=== PATIENT | male | born 1950 | race Two or more races ===

== ENCOUNTER → 2021-12-13 | Outpatient (CLI) | payer OTHER ==
[2021-12-13 08:10] LABS: Basophils # (auto) 0 10 ^3/uL (0-0.2); Basophils % (auto) 0.2 % (0.0-2.0); Eosinophils # (auto) 0 10 ^3/uL (0-0.8); Eosinophils % (auto) 0.3 % (0.0-7.0); Hematocrit 38.6 % (41.0-53.0); Hemoglobin 12.2 g/dL (13.5-17.5); Lymphocytes # (auto) 1.2 10 ^3/uL (0.4-5.4); Lymphocytes % (auto) 12.7 % (10.0-50.0); Mean Corpuscular Hemoglobin 27.4 pg (28.0-32.0); Mean Corpuscular Hgb Conc. 31.7 g/dL (32.0-36.0); Mean Corpuscular Volume 86.4 fL (80.0-100.0); Monocytes # (auto) 0.4 10 ^3/uL (0-1.3); Monocytes % (auto) 3.9 % (0.0-12.0); Neutrophils # (auto) 7.9 10 ^3/uL (1.6-8.6); Neutrophils % (auto) 82.9 % (37.0-80.0); Red Blood Cells 4.46 10^6/uL (4.5-5.90); White Blood Cell 9.6 10^3/uL (4.4-10.8)
[2021-12-13 08:12] LABS: Urine Bacteria NONE SEEN /hpf (None Seen); Urine Blood Negative /uL (Negative); Urine Specific Gravity 1.009 (1.001-1.035); Urine WBC 1 /hpf (0 - 3)
[2021-12-13 08:38] LABS: Calcium 8.6 mg/dL (8.5-10.1); Potassium 4.3 mmol/L (3.5-5.1)
[2021-12-13 08:44] LABS: BUN/Creatinine Ratio 20.4
== END | disposition home or self-care (01) ==
LOC: LAB 07:16
PROVIDERS: ATTEND Student in an Organized Health Care Education/Training Program
DX: E11.9 Type 2 diabetes mellitus without complications (principal); I10 Essential (primary) hypertension
CPT/HCPCS: 36415; 80048; 80061; 81001; 83036; 85025

== ENCOUNTER 2022-07-18 16:39 | Emergency (ER) | payer OTHER ==
[~2022-07-18] VITALS: Ht 177.8 cm; Wt 104.5 kg
[2022-07-18 17:42] LABS: Basophils % (auto) 0.7 % (0.0-2.0); Eosinophils # (auto) 0.2 10 ^3/uL (0-0.8); Hemoglobin 9.9 g/dL (13.5-17.5); Mean Corpuscular Hgb Conc. 33.3 g/dL (32.0-36.0); Monocytes # (auto) 0.6 10 ^3/uL (0-1.3); Neutrophils # (auto) 5.5 10 ^3/uL (1.6-8.6)
[2022-07-18 17:44] LABS: Basophils # (auto) 0 10 ^3/uL (0-0.2); Eosinophils % (auto) 2.3 % (0.0-7.0); Hematocrit 29.7 % (41.0-53.0); Lymphocytes # (auto) 1.1 10 ^3/uL (0.4-5.4); Lymphocytes % (auto) 14.7 % (10.0-50.0); Mean Corpuscular Hemoglobin 28.4 pg (28.0-32.0); Mean Corpuscular Volume 85.4 fL (80.0-100.0); Monocytes % (auto) 8.5 % (0.0-12.0); Neutrophils % (auto) 73.8 % (37.0-80.0); Nucleated Red Blood Cells % 0.1 %; Red Blood Cells 3.47 10^6/uL (4.5-5.90); Red Cell Distribution Width 17.2 % (11.8-14.3); White Blood Cell 7.4 10^3/uL (4.4-10.8)
[2022-07-18 18:04] LABS: Albumin 2.5 g/dL (3.4-5.0); BUN/Creatinine Ratio 10.2; Calcium 9.1 mg/dL (8.5-10.1)
[2022-07-18 18:07] LABS: Bilirubin, Total 0.5 mg/dL (0.2-1.0); Total Protein 7.4 g/dL (6.4-8.2)
[2022-07-18] MEDS ORDERED: BACDST PO (18:38)
[2022-07-18 19:55] VITALS: BP 130/65
== END 2022-07-18 20:08 | disposition home or self-care (01) ==
LOC: ER 16:39
DX: L03.90 Cellulitis, unspecified (principal)
CPT/HCPCS: 36415; 73700; 80053; 83690; 85025; 85652

== ENCOUNTER → 2022-08-20 | Outpatient (CLI) | payer OTHER ==
[~2022-08-20] MED LIST: BACDST PO
[2022-08-20 07:58] LABS: Basophils # (auto) 0 10 ^3/uL (0-0.2); Eosinophils # (auto) 0 10 ^3/uL (0-0.8); Hemoglobin 10.3 g/dL (13.5-17.5); Lymphocytes # (auto) 0.8 10 ^3/uL (0.4-5.4); Mean Corpuscular Hemoglobin 26.7 pg (28.0-32.0); Monocytes # (auto) 0.4 10 ^3/uL (0-1.3); Neutrophils # (auto) 5.6 10 ^3/uL (1.6-8.6)
[2022-08-20 08:00] LABS: Basophils % (auto) 0.2 % (0.0-2.0); Eosinophils % (auto) 0.5 % (0.0-7.0); Hematocrit 31.9 % (41.0-53.0); Lymphocytes % (auto) 11.7 % (10.0-50.0); Mean Corpuscular Hgb Conc. 32.3 g/dL (32.0-36.0); Mean Corpuscular Volume 82.6 fL (80.0-100.0); Monocytes % (auto) 5.7 % (0.0-12.0); Neutrophils % (auto) 81.9 % (37.0-80.0); Red Blood Cells 3.86 10^6/uL (4.5-5.90); Red Cell Distribution Width 19.4 % (11.8-14.3); Urine Bacteria NONE SEEN /hpf (None Seen); Urine Blood Negative /uL (Negative); Urine Specific Gravity 1.013 (1.001-1.035); Urine WBC 1 /hpf (0 - 3); White Blood Cell 6.9 10^3/uL (4.4-10.8)
[2022-08-20 08:27] LABS: Albumin 3.1 g/dL (3.4-5.0); Potassium 4.1 mmol/L (3.5-5.1)
[2022-08-20 08:35] LABS: BUN/Creatinine Ratio 23.6 (10.0-20.0); Bilirubin, Total 0.4 mg/dL (0.2-1.0); Calcium 9.5 mg/dL (8.5-10.1); Total Protein 7.1 g/dL (6.4-8.2)
== END | disposition home or self-care (01) ==
LOC: LAB 07:36
PROVIDERS: ATTEND Student in an Organized Health Care Education/Training Program
DX: I10 Essential (primary) hypertension (principal); E11.9 Type 2 diabetes mellitus without complications
CPT/HCPCS: 36415; 80053; 80061; 81001; 83036; 84153; 84154; 85025

== ENCOUNTER → 2023-02-18 | Outpatient (CLI) | payer OTHER ==
[2023-02-18 08:51] LABS: Basophils # (auto) 0 10 ^3/uL (0-0.2); Eosinophils # (auto) 0 10 ^3/uL (0-0.8); Monocytes # (auto) 0.4 10 ^3/uL (0-1.3); Nucleated Red Blood Cells % 0.2 %
[2023-02-18 08:53] LABS: Basophils % (auto) 0.2 % (0.0-2.0); Eosinophils % (auto) 0.1 % (0.0-7.0); Hemoglobin 8.5 g/dL (13.5-17.5); Lymphocytes # (auto) 1.1 10 ^3/uL (0.4-5.4); Lymphocytes % (auto) 11.2 % (10.0-50.0); Mean Corpuscular Hemoglobin 20.7 pg (28.0-32.0); Mean Corpuscular Hgb Conc. 30.2 g/dL (32.0-36.0); Mean Corpuscular Volume 68.6 fL (80.0-100.0); Monocytes % (auto) 4.6 % (0.0-12.0); Neutrophils # (auto) 7.9 10 ^3/uL (1.6-8.6); Neutrophils % (auto) 83.9 % (37.0-80.0); Red Blood Cells 4.08 10^6/uL (4.5-5.90); White Blood Cell 9.5 10^3/uL (4.4-10.8)
[2023-02-18 08:55] LABS: Red Cell Distribution Width 20.3 % (11.8-14.3)
[2023-02-18 09:00] LABS: Urine Bacteria FEW /hpf (None Seen); Urine Blood Negative /uL (Negative); Urine Clarity Clear (Clear); Urine Color Yellow (Yellow); Urine Protein, UAD Negative (Negative); Urine Specific Gravity 1.017 (1.001-1.035); Urine Urobilinogen Normal (Negative); Urine WBC 4 /hpf (0 - 3); Urine pH 6.5 (5.0-8.0)
[2023-02-18 09:03] LABS: Anion Gap 7 (5-15); Carbon Dioxide 27 mmol/L (20-30); Chloride 95 mmol/L (98-107); Potassium 4.1 mmol/L (3.5-5.1); Sodium 129 mmol/L (136-145)
[2023-02-18 09:05] LABS: Calcium 9.3 mg/dL (8.5-10.1)
[2023-02-18 09:09] LABS: BUN/Creatinine Ratio 21.4 (10.0-20.0); Blood Urea Nitrogen 21 mg/dL (9-23); Glucose 178 mg/dL (74-106)
[2023-02-18 12:05] LABS: Platelet Estimate Adequate; Stomatocytes Few
[2023-02-18 12:06] LABS: Hypochromia Marked; Tear Drop Cells FEW
[2023-02-18 12:07] LABS: Anisocytosis Slight
== END | disposition home or self-care (01) ==
LOC: LAB 08:12
PROVIDERS: ATTEND Student in an Organized Health Care Education/Training Program
DX: I10 Essential (primary) hypertension (principal); E11.9 Type 2 diabetes mellitus without complications
CPT/HCPCS: 36415; 80048; 81001; 83036; 84439; 84443; 85025

== ENCOUNTER → 2023-12-21 | Outpatient (CLI) | payer OTHER ==
[2023-12-21 07:47] LABS: Urine Bacteria None Seen /hpf (None Seen)
[2023-12-21 07:52] LABS: Basophils # (auto) 0 10 ^3/uL (0-0.2); Basophils % (auto) 0.3 % (0.0-2.0); Eosinophils # (auto) 0 10 ^3/uL (0-0.8); Eosinophils % (auto) 0.3 % (0.0-7.0); Hematocrit 36.3 % (41.0-53.0); Hemoglobin 11.7 g/dL (13.5-17.5); Lymphocytes # (auto) 1.2 10 ^3/uL (0.4-5.4); Lymphocytes % (auto) 15.6 % (10.0-50.0); Mean Corpuscular Hemoglobin 26.2 pg (28.0-32.0); Mean Corpuscular Hgb Conc. 32.1 g/dL (32.0-36.0); Mean Corpuscular Volume 81.5 fL (80.0-100.0); Monocytes # (auto) 0.5 10 ^3/uL (0-1.3); Monocytes % (auto) 6.5 % (0.0-12.0); Neutrophils # (auto) 5.7 10 ^3/uL (1.6-8.6); Neutrophils % (auto) 77.3 % (37.0-80.0); Nucleated Red Blood Cells % 0.1 %; Platelet Count (auto) 248 10^3/uL (140-450); Red Blood Cells 4.45 10^6/uL (4.5-5.90); White Blood Cell 7.4 10^3/uL (4.4-10.8)
[2023-12-21 08:13] LABS: Urine Blood Negative /uL (Negative); Urine Clarity Clear (Clear); Urine Color Light-Yellow (Yellow); Urine Protein, UAD Negative (Negative); Urine Specific Gravity 1.012 (1.001-1.035); Urine Urobilinogen Normal (Negative); Urine WBC 6 /hpf (0 - 3)
[2023-12-21 09:19] LABS: Alanine Aminotransferase 47 U/L (7-40); Alkaline Phosphatase 63 U/L (46-116); Aspartate Aminotransferase 19 U/L (13-40); BUN/Creatinine Ratio 24.2 (10.0-20.0); Blood Urea Nitrogen 22 mg/dL (9-23); Chloride 99 mmol/L (98-107); Cholesterol 250 mg/dL (< 200); Glucose 207 mg/dL (74-106); HDL Cholesterol 46 mg/dL (40-59); LDL Cholesterol 163 mg/dL (< 100); Potassium 4.1 mmol/L (3.5-5.1); Sodium 131 mmol/L (136-145); Triglycerides 266 mg/dL (< 150)
[2023-12-21 09:20] LABS: Bilirubin, Total 0.4 mg/dL (0.2-1.0); Total Protein 6.7 g/dL (5.7-8.2)
[2023-12-21 09:24] LABS: Anion Gap 1 (5-15); Carbon Dioxide 31 mmol/L (20-30)
[2023-12-22 08:06] LABS: PSA Free 0.61 ng/mL; Prostate Specific Antigen 7.3 ng/mL (0.0-4.0)
== END | disposition home or self-care (01) ==
LOC: LAB 07:37
PROVIDERS: ATTEND Student in an Organized Health Care Education/Training Program
DX: I10 Essential (primary) hypertension (principal); E11.9 Type 2 diabetes mellitus without complications; R97.20 Elevated prostate specific antigen [PSA]
CPT/HCPCS: 36415; 80053; 80061; 81001; 83036; 84153; 84154; 85025

== ENCOUNTER → 2024-08-16 | Outpatient (CLI) | payer OTHER ==
[2024-08-16 07:43] LABS: Urine Bacteria None Seen /hpf (None Seen)
[2024-08-16 08:03] LABS: Urine Blood Negative /uL (Negative); Urine Clarity Clear (Clear); Urine Color Colorless (Yellow); Urine Protein, UAD Negative (Negative); Urine Specific Gravity 1.011 (1.001-1.035); Urine Squamous Epithelial Cell FEW /hpf (<5); Urine Urobilinogen Normal (Negative); Urine WBC 2 /HPF (0-3)
[2024-08-16 08:15] LABS: Basophils # (auto) 0 10 ^3/uL (0-0.2); Basophils % (auto) 0.2 % (0.0-2.0); Eosinophils # (auto) 0 10 ^3/uL (0-0.8); Eosinophils % (auto) 0.1 % (0.0-7.0); Hematocrit 39.6 % (41.0-53.0); Hemoglobin 13.2 g/dL (13.5-17.5); Lymphocytes % (auto) 13.1 % (10.0-50.0); Mean Corpuscular Hemoglobin 29.2 pg (28.0-32.0); Mean Corpuscular Hgb Conc. 33.5 g/dL (32.0-36.0); Mean Corpuscular Volume 87.1 fL (80.0-100.0); Monocytes # (auto) 0.4 10 ^3/uL (0-1.3); Monocytes % (auto) 4.7 % (0.0-12.0); Neutrophils # (auto) 6.3 10 ^3/uL (1.6-8.6); Neutrophils % (auto) 81.9 % (37.0-80.0); Platelet Count (auto) 263 10^3/uL (140-450); Red Blood Cells 4.54 10^6/uL (4.5-5.90); Red Cell Distribution Width 17.5 % (11.8-14.3); White Blood Cell 7.7 10^3/uL (4.4-10.8)
[2024-08-16 08:30] LABS: Alanine Aminotransferase 30 U/L (7-40); Albumin 4.3 g/dL (3.2-4.8); Alkaline Phosphatase 62 U/L (46-116); Anion Gap 10 (5-15); Calcium 10.1 mg/dL (8.7-10.4); Carbon Dioxide 27 mmol/L (20-31); Potassium 3.8 mmol/L (3.5-5.1); Total Protein 7.4 g/dL (5.7-8.2)
[2024-08-16 08:31] LABS: Bilirubin, Total 0.6 mg/dL (0.2-1.0)
[2024-08-16 08:33] LABS: HDL Cholesterol 45 mg/dL (40-59)
[2024-08-16 08:35] LABS: Aspartate Aminotransferase 11 U/L (13-40); Blood Urea Nitrogen 28 mg/dL (9-23); Chloride 94 mmol/L (98-107); Cholesterol 266 mg/dL (< 200); Glucose 273 mg/dL (74-106); LDL Cholesterol 184 mg/dL (< 100); Sodium 131 mmol/L (136-145); Triglycerides 252 mg/dL (< 150)
[2024-08-16 08:48] LABS: Creatinine, Urine 37.85 mg/dL (30.0-125.0)
== END | disposition home or self-care (01) ==
LOC: LAB 07:18
PROVIDERS: ATTEND Student in an Organized Health Care Education/Training Program
DX: I10 Essential (primary) hypertension (principal); E11.9 Type 2 diabetes mellitus without complications; R35.1 Nocturia
CPT/HCPCS: 36415; 80053; 80061; 81001; 82043; 82570; 83036; 84443; 85025

== ENCOUNTER 2024-11-08 07:43 | Outpatient (CLI) | payer OTHER ==
[2024-11-08 08:28] LABS: Hematocrit 37.7 % (41.0-53.0); Hemoglobin 12.6 g/dL (13.5-17.5); Mean Corpuscular Hemoglobin 29.3 pg (28.0-32.0); Mean Corpuscular Volume 87.3 fL (80.0-100.0); Nucleated Red Blood Cells % 0.2 %
[2024-11-08 08:59] LABS: Albumin 4.1 g/dL (3.2-4.8); Alkaline Phosphatase 52 U/L (46-116); Anion Gap 8 (5-15); BUN/Creatinine Ratio 19.8 (10.0-20.0); Bilirubin, Total 0.6 mg/dL (0.2-1.0); Blood Urea Nitrogen 19 mg/dL (9-23); Carbon Dioxide 29 mmol/L (20-31); HDL Cholesterol 42 mg/dL (40-59); Potassium 3.9 mmol/L (3.5-5.1); Total Protein 6.8 g/dL (5.7-8.2)
[2024-11-08 09:08] LABS: Alanine Aminotransferase 41 U/L (7-40); Calcium 10.5 mg/dL (8.7-10.4); Chloride 96 mmol/L (98-107); Cholesterol 245 mg/dL (< 200); Glucose 203 mg/dL (74-106); Sodium 133 mmol/L (136-145); Triglycerides 308 mg/dL (< 150)
== END 2024-11-08 19:17 | disposition home or self-care (01) ==
LOC: LAB 07:43
PROVIDERS: ATTEND Licensed Practical Nurse
DX: I10 Essential (primary) hypertension (principal); E11.9 Type 2 diabetes mellitus without complications; E78.2 Mixed hyperlipidemia
CPT/HCPCS: 36415; 80053; 80061; 82043; 83036; 85025

== ENCOUNTER 2025-02-04 15:07 | Inpatient (IN) | payer OTHER ==
[~2025-02-04] VITALS: Ht 170.2 cm; Wt 94.5 kg
--- NOTE | 2025-02-04 15:27 | ECG ---
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
[2025-02-04 16:15] VITALS: O2SAT 96
--- NOTE | 2025-02-04 16:18 | DVH ---
CHEST RADIOGRAPH Indication: gen weak Technique: Single frontal view of the chest was obtained Comparison: None FINDINGS: Lines and Tubes: None Lungs: Diffuse interstitial prominence. Bronchovascular crowding due to low lung volumes. No pneumothorax. Cardiomediastinal contours: Limited evaluation of the heart size due to obscuration of the left lower lung zone by patient's hand. Left-sided approach dual lead pacemaker terminating within right atrium and right ventricle. Bones: No acute osseous abnormality. Severe degenerative changes of the right glenohumeral joint. IMPRESSION: Bronchovascular crowding due to low lung volume with pulmonary vascular congestion. Limited evaluation of the left lower lung zone due to overlying hand. Underlying effusion/atelectasis / pneumonia can not be excluded.
[2025-02-04 16:25] LABS: Hematocrit 41.1 % (41.0-53.0); Hemoglobin 14.0 g/dL (13.5-17.5); Mean Corpuscular Hemoglobin 29.9 pg (28.0-32.0); Mean Corpuscular Volume 87.7 fL (80.0-100.0); Nucleated Red Blood Cells % 0.2 %
--- NOTE | 2025-02-04 16:26 | DVH ---
Procedure: CT HEAD WITHOUT CONTRAST Study Date and Requested Time: 02/04/2025 03:41 PM History: gen weak Comparison: None Dose: CTDI: 65.33 mGy DLP: 1.71 mGycm Technique: Multiplanar images obtained through the brain without intravenous contrast. Findings: Moderate diffuse brain atrophy. Mild chronic small-vessel ischemic changes. Bilateral basal ganglia physiologic calcification. No hemorrhages, masses, mass effect, midline shift, herniation or cytotoxic edema following a large v ascular territory. No intra-axial or extra-axial fluid collections. No evidence of hydrocephalus. The basal cisterns are patent. The pituitary gland, sella and parasellar regions are unremarkable. The cerebellar tonsils are in nor mal position. The cerebellum is unremarkable. The orbits and globes are unremarkable. Mild mucoperiosteal thickening of the ethmoid air cells, righ t maxillary sinus and right sphenoid sinus. The remainder of the paranasal sinuses and mastoids are clear. There are no worrisome calvarial lesions. Minimal forehead soft tissue edema. Impression: No evidence of acute intracranial abnormality.
[2025-02-04 16:27] LABS: Urine Protein, UAD Negative (Negative)
--- NOTE | 2025-02-04 16:35 | ED.PDOC ---
HPI (NEURO) HPI Comments Jeremy Cisneros is a 74-year-old male, with past medical history of DM2, HTN and anemia. The patient came to the ED via EMS with chief complaint of 1 day of general weakness and being drowsy. The patient is a poor historian, there is no family at bed side. He denies headache, abdominal pain, fever or other symptoms. In the ED Blood sugar 229, O2Sat 96% BP 128/73mmHg. CT head non contrast is pending. The patient will be admitted for further assessment and management. Attestation note: Dr. Kong: I was the supervising attending for this ED encounter. Please see the resident's notes. I was available for questions and consultations. Differential diagnosis: DDX include CVA, TGA, cerebellar ischemia/infarct, carotid stenosis, Intracranial mass/infection/bleed, encephalopathy, electrolyte abnormality, thyroid disease, hydrocephalus, hypoglycemia, drug toxicity, cardiac arrhythmia, seizure, infection in the elderly, Hyperammonemia., kidney failure., sepsis. MDM: MDM: patient presented with the above HPI.---altered mental status/altered level of consciousness---workup was initiated. patient was found with the above mentioned diagnosis. the following medications were ordered: please refer to order lists of meds and tests obtained by myself Dr. Kong. Patient ED course and VS have been stabilized. Patient has been reassessed in the ED and remained in a stable condition. Pertinent incidental findings were discussed with the patient and/or family. Patient has been observed in the ED adequate length of time to insure improvement/stability. Escalation of care considered: Consideration of escalation to observation or admission Sepsis bundle was initiated with fluid resuscitation. Patient was ADMITTED to the medicine team for further evaluation and treatment of their presentation. All the reports of any imaging studies that were ordered by myself were reviewed by myself. Chief Complaint: General Weakness Time Seen by MD: 16:21 Primary Care Provider: ANGEL Reviewed Notes: Nurses Notes, Medications, Allergies Information Source: Patient Mode of Arrival: EMS Severity: Moderate Timing: Hours Duration: Since onset Past Medical History PAST MEDICAL HISTORY: DM, HTN, Denies Surgical History: Denies all surgeries Family History Family History: Unknown Social History Smoker: Non-Smoker Alcohol: Denies ETOH Use Drugs: Denies Drug Use Lives In: Home Constitutional: denies: chills, diaphoresis, fatigue, fever, malaise, sweats, weakness, others EENTM: denies: blurred vision, double vision, ear bleeding, ear discharge, ear drainage, ear pain, ear ringing, eye pain, eye redness, hearing loss, mouth pain, mouth swelling, nasal discharge, nose bleeding, nose congestion, nose pain, photophobia, tearing, throat pain, throat swelling, voice changes, others Respiratory: denies: cough, hemoptysis, orthopnea, SOB at rest, shortness of breath, SOB with excertion, stridor, wheezing, others Cardiovascular: denies: chest pain, dizzy spells, diaphoresis, Dyspnea on exertion, edema, irregular heart beat, left arm pain, lightheadedness, palpitations, PND, syncope, others Gastrointestinal: denies: abdomen distended, abdominal pain, blood streaked bowels, constipated, diarrhea, dysphagia, difficulty swallowing, hematemesis, melena, nausea, poor appetite, poor fluid intake, rectal bleeding, rectal pain, vomiting, others Genitourinary: denies: burning, dysuria, flank pain, frequency, hematuria, incontinence, penile discharge, penile sore, pain, testicle pain, testicle swelling, urgency, others Neurological: reports: dizziness; denies: fainting, headache, left sided numbness, left sided weakness, numbness, paresthesia, pre-existing deficit, right sided numbness, right sided weakness, seizure, speech problems, tingling, tremors, weakness, others Musculoskeletal: denies: back pain, gout, joint pain, joint swelling, muscle pain, muscle stiffness, neck pain, others Integumetry: denies: bruises, change in color, change in hair/nails, dryness, laceration, lesions, lumps, rash, wounds, others Allergic/Immunocompromised: denies: Difficulty Healing, Frequent Infections, Hives, Itching, others Hematologic/Lymphatic: denies: anemia, blood clots, easy bleeding, easy bruising, swollen glands, others Endocrine: denies: excessive hunger, excessive sweating, excessive thirst, excessive urination, flushing, intolerance to cold, intolerance to heat, unexplained weight gain, unexplained weight loss, others Psychiatric: denies: anxiety, bipolar disorder, depression, hopeless, panic disorder, schizophrenia, sleepless, suicidal, others Physical Exam Exam Comments Patient is drowsy, responds to voice and follows commands. There is no facial drop. General Appearance: No Apparent Distress HEENT: Normal ENT Inspection, Pharynx Normal, TMs Normal Neck: Full Range of Motion, Non-Tender, Normal, Normal Inspection Respiratory: Chest Non-Tender, Lungs Clear, No Accessory Muscle Use, No Respiratory Distress, Normal Breath Sounds Cardiovascular: No Edema, No JVD, No Murmur, No Gallop, Normal Peripheral Pulses, Regular Rate/Rhythm Breast Exam: Deferred Gastrointestinal: No Organomegaly, Non Tender, No Pulsatile Mass, Normal Bowel Sounds, Soft Genitalia: Deferred Pelvic: Deferred Rectal: Deferred Extremities: No calf tenderness, Normal capillary refill, Normal inspection, Normal range of motion, Non-tender, No pedal edema Musculoskeletal : Apperance: Normal Neurologic: Alert (oriented x 3, but he is drowsy. ), logistics analyst II-XII nml as Tested, No Motor Deficits, Normal Affect, Normal Mood, No Sensory Deficits, Other (M otor: normal movement in all extremities, Sensation: preserved, Strenght: 5/5, ) Cerebellar Function: Unable to Test Reflexes: Normal Skin: Dry, Normal Color, Warm Lymphatic: No Adenopathy EKG EKG : Pulse Rate (adult): 97 [place]: Normal Cardiac Rhythm: Paced Block: None Hypertrophy: None ST: Normal Was a procedure done? Was a procedure done?: No Differential Diagnosis (SZ) Seizure: N/A CVA: CVA, Electrolyte Imbalance, Encephalopathy, Hypoglycemia, Other (UTI, Metabolic encephalopathy ) General Weakness: TIA Headache: N/A X-Ray, Labs, Meds, VS Vital Signs Date Time Temp Pulse Resp B/P (MAP) Pulse Ox O2 Delivery O2 Flow Rate FiO2 02/04/25 16:15 96 Room Air* 0 21 02/04/25 15:40 98.7 99 23 128/73 (91) 96 98.7 02/04/25 15:21 98.7 107 16 120/63 95 98.7 02/04/25 15:12 97 Lab Test 02/04/25 16:57 02/04/25 16:21 02/04/25 16:03 Range/Units Ammonia < 10 L 11-32 umol/L Troponin I High Sensitivity 24 25 </=54 ng/L Urine Color Light-yellow Yellow Urine Clarity Clear Clear Urine pH 7.5 5.0-9.0 Urine Specific [place] 1.011 1.001-1.035 Urine Protein Negative Negative Urine Ketones Negative Negative Urine Blood Negative Negative /uL Urine Nitrite Negative Negative Urine Bilirubin Negative Negative Urine Urobilinogen Normal Negative mg/dL Urine Leukocyte Esterase 3+ Negative /uL Urine RBC 2 0 - 3 /hpf Urine Microscopic WBC 178 H 0-3 /HPF Urine Squamous Epithelial Cells Few <5 /hpf Urine Bacteria None seen None Seen /hpf Urine Glucose 2+ H Normal mg/dL White Blood Count 7.2 4.4-10.8 10^3/uL Red Blood Count 4.68 4.5-5.90 10^6/uL Hemoglobin 14.0 13.5-17.5 g/dL Hematocrit 41.1 41.0-53.0 % Mean Corpuscular Volume 87.7 80.0-100.0 fL Mean Corpuscular Hemoglobin 29.9 28.0-32.0 pg Mean Corpuscular Hemoglobin Concent 34.1 32.0-36.0 g/dL Red Cell Distribution Width 16.7 H 11.8-14.3 % Platelet Count 198 140-450 10^3/uL Mean Platelet Volume 6.7 L 6.9-10.8 fL Neutrophils (%) (Auto) 80.6 H 37.0-80.0 % Lymphocytes (%) (Auto) 10.5 10.0-50.0 % Monocytes (%) (Auto) 8.3 0.0-12.0 % Eosinophils (%) (Auto) 0.1 0.0-7.0 % Basophils (%) (Auto) 0.5 0.0-2.0 % Neutrophils # (Auto) 5.8 1.6-8.6 10 ^3/uL Lymphocytes # (Auto) 0.8 0.4-5.4 10 ^3/uL Monocytes # (Auto) 0.6 0-1.3 10 ^3/uL Eosinophils # (Auto) 0 0-0.8 10 ^3/uL Basophils # (Auto) 0 0-0.2 10 ^3/uL Nucleated Red Blood Cells 0.2 % Prothrombin Time 10.3 9.3-11.8 sec Prothrombin Time INR 0.97 0.9-1.15 Activated Partial Thromboplast Time 22.8 L 24.5-34.5 SEC Sodium Level 135 L 136-145 mmol/L Potassium Level 3.7 3.5-5.1 mmol/L Chloride Level 93 L 98-107 mmol/L Carbon Dioxide Level 30 20-31 mmol/L Anion Gap 12 5-15 Blood Urea Nitrogen 15 9-23 mg/dL Creatinine 0.94 0.700-1.30 mg/dL Glomerular Filtration Rate Calc 84 >90 mL/min BUN/Creatinine Ratio 16.0 10.0-20.0 Serum Glucose 214 H 74-106 mg/dL Lactic Acid Level 3.1 *H 0.4-2.0 mmol/L Calcium Level 9.7 8.7-10.4 mg/dL Magnesium Level 1.5 L 1.6-2.6 mg/dL Total Bilirubin 0.5 0.2-1.0 mg/dL Aspartate Amino Transferase (AST) 27 13-40 U/L Alanine Aminotransferase (ALT) 58 H 7-40 U/L Alkaline Phosphatase 53 46-116 U/L B-Type Natriuretic Peptide 195.85 0-100 pg/mL Total Protein 6.8 5.7-8.2 g/dL Albumin 3.9 3.2-4.8 g/dL Current Medications Medications (Trade) Dose Ordered Sig/Janee Route Start Time Stop Time Status Last Admin Ceftriaxone Sodium 50 ml @ 100 mls/hr ONCE ONCE IV 02/04/25 16:45 02/04/25 17:14 DC 02/04/25 17:01 Lactated Ringer's 2,000 ml @ 2,000 mls/hr ONCE ONCE IV 02/04/25 17:00 02/04/25 17:59 DC 02/04/25 17:30 X-Ray, Labs, Meds, VS Comment 16:51 The patient has been reassessed. Patient is still drowsy, but follows commands. CBC: 7.2x10e3/uL CMP: Lactic acid: 3.1 UA: positive for UTI The patient will be admitted for further assessments. Time of 1ST Reevaluation: 16:51 Reevaluation 1ST: Unchanged Patient Education/Counseling: Diagnosis, Treatment, Prognosis, Need For Follow Up Family Education/Counseling: No Family Present Departure 1 Departure Time of Disposition: 16:51 Impression: Primary Impression: UTI (urinary tract infection) Additional Impressions: Metabolic encephalopathy Sepsis Hypomagnesemia Disposition: ADMITTED INPATIENT Admit to: Tele Condition: Guarded Discharged With: Self Comments Goals of care discussed with the patient > 35 min. Discussed plan of care with Dr. Kong Code status: Full code PCP: Dr. Angel Plan discussed with: Patient, the patient agrees with the admission plan. Critical Care Note Critical Care Time?: Yes (1 hr-critical care time only) Stability Stability form required: No Heart Score Heart Score: Heart Score Response (Comments) Value History Moderate Suspicious 1 EKG Normal 0 Age >65 2 Risk Factors 1 or 2 risk factors 1 Troponin Normal limit 0 Total 4 JERMAN LIVINGSTON RESIDENT Feb 04, 2025 16:35 HANNAH KONG DO Feb 04, 2025 18:32
[2025-02-04 16:37] LABS: Albumin 3.9 g/dL (3.2-4.8); Alkaline Phosphatase 53 U/L (46-116); Anion Gap 12 (5-15); BUN/Creatinine Ratio 16.0 (10.0-20.0); Blood Urea Nitrogen 15 mg/dL (9-23); Calcium 9.7 mg/dL (8.7-10.4); Carbon Dioxide 30 mmol/L (20-31); Potassium 3.7 mmol/L (3.5-5.1); Total Protein 6.8 g/dL (5.7-8.2)
[2025-02-04 16:38] LABS: Alanine Aminotransferase 58 U/L (7-40); Bilirubin, Total 0.5 mg/dL (0.2-1.0); Chloride 93 mmol/L (98-107); Glucose 214 mg/dL (74-106); Magnesium 1.5 mg/dL (1.6-2.6); Sodium 135 mmol/L (136-145)
[2025-02-04 16:42] LABS: Lactic Acid w/Reflex 3.1 mmol/L (0.4-2.0)
[2025-02-04] MEDS ORDERED: ONDANSETRON HCL 4 MG/2 ML VIAL IV PRN (17:00)
[2025-02-04] MEDS ORDERED: DEXTROSE (50%) 50ML SYRG IV PRN (17:00)
[2025-02-04] MEDS ORDERED: AZITHROMYCIN 500MG/ 250ML 250 ML IV ONE (17:00)
[2025-02-04] MEDS ORDERED: DOCUSATE SOD 100 MG CAP PO PRN (17:00)
[2025-02-04 17:28] LABS: INR 0.97 (0.9-1.15); Partial Thromboplastin Time 22.8 SEC (24.5-34.5); Prothrombin Time 10.3 sec (9.3-11.8)
[2025-02-04] MEDS ORDERED: NITROGLYCERIN 0.4 MG SL TAB SL PRN (17:30)
[2025-02-04] MEDS: LACTATED RINGER'S 2,000 ML IV ONE (17:30)
[2025-02-04] MEDS ORDERED: MORPHINE SULFATE INJ 2 MG/ml SYRG IV PRN (17:30)
--- NOTE | 2025-02-04 17:30 | DVHHP2 ---
History of Present Illness Reason for Visit: Generalized weakness History of Present Illness The patient is a 74-year-old male with past medical history of diabetes mellitus, hyperlipidemia, and hypertension who presented to [facility] ED with complaint of generalized weakness associated with drowsy for the past 1 day. Patient was seen and evaluated in the ED, laboratory data shows WBC 7.2, platelets 198, sodium 135, potassium 3.7, BUN 15, creatinine 0.94, GFR 84, glucose 214, calcium 9.7, magnesium 1.5, troponin 25, AST 27, ALT 58, lactic acid 3.1, blood pressure 128/73, heart rate 99, temperature 98.7 F, O2 saturation 96% on room air. Urinalysis positive for urinary tract infection. Chest x-ray revealing bronchus cannula crowding due to low lung volume with pulmonary vascular congestion; underlying effusion/atelectasis/pneumonia can not be excluded. Please see medication orders section in the computer. On my assessment, patient denied chest pain, no headache, diaphoresis, shortness of breaths, no diarrhea, nausea, vomiting, no fever, no chills. Patient was admitted for further evaluation and medical management. Past Medical History DM, HTN, Anemia, HLD Past Surgical History Denies all surgeries Family History Reviewed, noncontributory to the management of this case. Past Social History The patient lives at home, denies smoking, alcohol or illicit drugs abuse. Review of Systems Constitutional: Yes: Weakness; No: Fever, Chills, Sweats, Malaise, Other Eyes: No: Pain, Vision change, Conjunctivae inflammation, Eyelid inflammation, Other, Redness ENT: No: Ear pain, Ear discharge, Nose pain, Nose discharge, Nose congestion, Mouth pain, Mouth swelling, Throat pain, Throat swelling, Other Respiratory: No: Cough, Dry, Shortness of breath, SOB with excertion, Wheezing, Hemoptysis, Pleuritic Pain, Sputum, Wheezing, Other Cardiovascular: No: Chest Pain, Palpitations, Orthopnea, Paroxysmal Noc. Dyspnea, Edema, Lt Headedness, Other Gastrointestinal: No: Nausea, Vomiting, Abdominal Pain, Diarrhea, Constipation, Melena, Hematochezia, Other Genitourinary: No Dysuria, No Frequency, No Incontinence, No Hematuria, No Retention, No Other Musculoskeletal: No: other, neck pain, shoulder pain, arm pain, back pain, hand pain, leg pain, foot pain Skin: No: Rash, Lesions, Jaundice, Bruising, Other Neurological: Other (Dizziness); No: Weakness, Numbness, Incoordination, Change in speech, Confusion, Seizures Allergies: Coded Allergies: NO KNOWN ALLERGIES (Unverified , 07/02/15) Medications Current Medications Medications Dose Ordered Sig/Janee Route Start Time Stop Time Status Last Admin Dose Admin Ceftriaxone Sodium 50 ml @ 100 mls/hr DAILY@09 IV 02/05/25 09:00 Azithromycin 250 ml @ 125 mls/hr DAILY IV 02/05/25 10:00 UNV Atorvastatin Calcium 20 mg HS PO 02/04/25 22:00 Aspirin 81 mg DAILY PO 02/05/25 10:00 Metoprolol Tartrate 25 mg BID PO 02/04/25 22:00 Famotidine 20 mg Q12HR IV 02/04/25 22:00 Diagnostic Test (Pha) 1 strip IQ4HR 02/04/25 20:00 Insulin Human Regular IQ4HR SC 02/04/25 20:00 Dextrose 50 ml UD PRN IV 02/04/25 17:00 Sodium Chloride 10 ml Q8HR IV 02/04/25 22:00 Acetaminophen/ Hydrocodone Bitart 1 tab Q4HP PRN PO 02/04/25 17:00 Ondansetron HCl 4 mg Q4HP PRN IV 02/04/25 17:00 Docusate Sodium 100 mg BIDPRN PRN PO 02/04/25 17:00 Acetaminophen 650 mg Q6HP PRN PO 02/04/25 17:00 Exam Vital Signs Vital Signs Date Time Temp Pulse Resp B/P (MAP) Pulse Ox O2 Delivery O2 Flow Rate FiO2 02/04/25 16:15 96 Room Air* 0 21 02/04/25 15:40 98.7 99 23 128/73 (91) 98.7 General Appearance: Alert, Oriented X3, Cooperative, No acute distress HEENT: Atraumatic, PERRLA, EOMI, Mucous membr. moist/pink Respiratory: Normal air movement, Other (Diminished breath sounds) Cardiovascular: Regular rate, Normal S1, Normal S2, No murmurs Abdominal: Normal bowel sounds, Soft, No tenderness, No hepatospenomegaly, No masses Extremities: No clubbing, No cyanosis, No edema, Normal pulses, No tenderness/swelling Skin: No rashes, No significant lesion Neuro: Normal speech, Normal tone, Sensation intact, Cranial nerves 3-12 NL, Reflexes 2+, Other (Generalized weakness) Psych/Mental Status: Mental status NL, Mood NL Labs/Xrays Labs Test 02/04/25 16:57 02/04/25 16:21 02/04/25 16:03 Range/Units Urine Color Light-yellow Yellow Urine Clarity Clear Clear Urine pH 7.5 5.0-9.0 Urine Specific [place] 1.011 1.001-1.035 Urine Protein Negative Negative Urine Ketones Negative Negative Urine Blood Negative Negative /uL Urine Nitrite Negative Negative Urine Bilirubin Negative Negative Urine Urobilinogen Normal Negative mg/dL Urine Leukocyte Esterase 3+ Negative /uL Urine RBC 2 0 - 3 /hpf Urine Microscopic WBC 178 H 0-3 /HPF Urine Squamous Epithelial Cells Few <5 /hpf Urine Bacteria None seen None Seen /hpf Urine Glucose 2+ H Normal mg/dL White Blood Count 7.2 4.4-10.8 10^3/uL Red Blood Count 4.68 4.5-5.90 10^6/uL Hemoglobin 14.0 13.5-17.5 g/dL Hematocrit 41.1 41.0-53.0 % Mean Corpuscular Volume 87.7 80.0-100.0 fL Mean Corpuscular Hemoglobin 29.9 28.0-32.0 pg Mean Corpuscular Hemoglobin Concent 34.1 32.0-36.0 g/dL Red Cell Distribution Width 16.7 H 11.8-14.3 % Platelet Count 198 140-450 10^3/uL Mean Platelet Volume 6.7 L 6.9-10.8 fL Neutrophils (%) (Auto) 80.6 H 37.0-80.0 % Lymphocytes (%) (Auto) 10.5 10.0-50.0 % Monocytes (%) (Auto) 8.3 0.0-12.0 % Eosinophils (%) (Auto) 0.1 0.0-7.0 % Basophils (%) (Auto) 0.5 0.0-2.0 % Neutrophils # (Auto) 5.8 1.6-8.6 10 ^3/uL Lymphocytes # (Auto) 0.8 0.4-5.4 10 ^3/uL Monocytes # (Auto) 0.6 0-1.3 10 ^3/uL Eosinophils # (Auto) 0 0-0.8 10 ^3/uL Basophils # (Auto) 0 0-0.2 10 ^3/uL Nucleated Red Blood Cells 0.2 % Sodium Level 135 L 136-145 mmol/L Potassium Level 3.7 3.5-5.1 mmol/L Chloride Level 93 L 98-107 mmol/L Carbon Dioxide Level 30 20-31 mmol/L Anion Gap 12 5-15 Blood Urea Nitrogen 15 9-23 mg/dL Creatinine 0.94 0.700-1.30 mg/dL Glomerular Filtration Rate Calc 84 >90 mL/min BUN/Creatinine Ratio 16.0 10.0-20.0 Serum Glucose 214 H 74-106 mg/dL Lactic Acid Level 3.1 *H 0.4-2.0 mmol/L Calcium Level 9.7 8.7-10.4 mg/dL Magnesium Level 1.5 L 1.6-2.6 mg/dL Total Bilirubin 0.5 0.2-1.0 mg/dL Aspartate Amino Transferase (AST) 27 13-40 U/L Alanine Aminotransferase (ALT) 58 H 7-40 U/L Alkaline Phosphatase 53 46-116 U/L Total Protein 6.8 5.7-8.2 g/dL Albumin 3.9 3.2-4.8 g/dL PATIENT: ROLY NATHAN ACCT: [id number] UNIT: [id number] : 1950 LOC: ER ROOM / BED: / AGE / SEX: 74 / M ADM STATUS: REG ER SERVICE 1540 ORDERING PHYSICIAN: HANNAH KONG DO PROCEDURE(s): HWOCT - HEAD WITHOUT CONTRAST REASON: gen florez ORDER NUMBER(s): [id number], ACCESSION NUMBER(s): [id number] Procedure: CT HEAD WITHOUT CONTRAST Study Date and Requested Time: 02/04/2025 03:41 PM History: gen florez Comparison: None Dose: CTDI: 65.33 mGy DLP: 1.71 mGycm Technique: Multiplanar images obtained through the brain without intravenous contrast. Findings: Moderate diffuse brain atrophy. Mild chronic small-vessel ischemic changes. Bilateral basal ganglia physiologic calcification. No hemorrhages, masses, mass effect, midline shift, herniation or cytotoxic edema following a large vascular territory. No intra-axial or extra-axial fluid collections. No evidence of hydrocephalus. The basal cisterns are patent. The pituitary gland, sella and parasellar regions are unremarkable. The cerebellar tonsils are in normal position. The cerebellum is unremarkable. The orbits and globes are unremarkable. Mild mucoperiosteal thickening of the ethmoid air cells, right maxillary sinus and right sphenoid sinus. The remainder of the paranasal sinuses and mastoids are clear. There are no worrisome calvarial lesions. Minimal forehead soft tissue edema. Impression: No evidence of acute intracranial abnormality. ORDERING PHYSICIAN: HANNAH KONG DO PROCEDURE(s): CXRP - CHEST PORTABLE REASON: gen weak ORDER NUMBER(s): [id number], ACCESSION NUMBER(s): [id number] CHEST RADIOGRAPH Indication: gen florez Technique: Single frontal view of the chest was obtained Comparison: None FINDINGS: Lines and Tubes: None Lungs: Diffuse interstitial prominence. Bronchovascular crowding due to low lung volumes. No pneumothorax. Cardiomediastinal contours: Limited evaluation of the heart size due to obscuration of the left lower lung zone by patient's hand. Left-sided approach dual lead pacemaker terminating within right atrium and right ventricle. Bones: No acute osseous abnormality. Severe degenerative changes of the right glenohumeral joint. IMPRESSION: Bronchovascular crowding due to low lung volume with pulmonary vascular congestion. Limited evaluation of the left lower lung zone due to overlying hand. Underlying effusion/atelectasis/pneumonia can not be excluded. SEPSIS Sepsis Screen Date sepsis recognized/suspect: Feb 04, 2025 Time Sepsis recognized/suspect: 1540 Recent Procedure: No On Antibiotic Therapy: No Respiratory Rate >20: Yes (RR 23) Heart Rate >90: No Temp<36 C (96.8 F) or >38.3 C: No SBP <90 or MAP <65 mmHG: No New Acute Mental Status Change: Yes Is the patient on CPAP, BIPAP,: No Physician Orders Cosmetic Sales (02/04/25 ) Chest Portable (02/04/25 15:40) Head Without Contrast (02/04/25 15:40) Stroke Assessment (02/04/25 15:40) Troponin-I Hs (02/04/25 16:40) Troponin-I Hs (02/04/25 18:40) Ammonia (02/04/25 16:31) PTPTT (02/04/25 16:46) Accucheck (02/04/25 16:46) Lactated Ringer's (02/04/25 17:00) Blood Culture (02/04/25 16:46) Notify Md If Map <65 Or Bp<90 (02/04/25 16:46) If Map<65 Start Vasopressor (02/04/25 16:46) Sepsis Reassesment After Fluid (02/04/25 17:46) Consistent Carb(Ccho)Diabetes (02/04/25 Dinner) Ceftriaxone 1gm/50ml (Rocephin) (02/05/25 09:00) Azithromycin 500mg/ 250ml (Zithromax 50 (02/05/25 10:00) Azithromycin 500mg/ 250ml (Zithromax 50 (02/04/25 17:00) Atorvastatin (Lipitor) (02/04/25 22:00) Aspirin Tablet (02/05/25 10:00) Metoprolol Tartrate Tablet (Lopressor Ta (02/04/25 22:00) Famotidine Injection (Pepcid Injection) (02/04/25 22:00) Magnesium Sulfate 1gm/100ml (02/04/25 17:00) Glucose Blood (Accu-Chek Comfort Curve T (02/04/25 20:00) Insulin R (Human) (Insulin R) (02/04/25 20:00) Dextrose 50% Syringe (02/04/25 17:00) Allergies (02/04/25 16:53) Code Status (02/04/25 16:53) Sodium Chloride Lock (Saline Lock Ns) (02/04/25 22:00) Oxygen Per Hour (02/04/25 16:53) Hydrocodone-Acet 5/325mg Tab (Primrose 5/32 (02/04/25 17:00) Ondansetron Hcl (Zofran) (02/04/25 17:00) Docusate Sodium Capsule (Colace Capsule) (02/04/25 17:00) Fall Risk Precautions In Place QSHIFT (02/04/25 16:53) Complete Blood Count (02/05/25 04:00) Comprehensive Metabolic Panel (02/05/25 04:00) Condition: Serious (02/04/25 16:53) Acetaminophen Tablet (Tylenol Tablet) (02/04/25 17:00) Maintain Bed Rest (02/04/25 16:53) Sequential Compression Device (02/04/25 ) Levofloxacin Levaquin (02/05/25 10:00) Levofloxacin Levaquin (02/04/25 17:30) Admit (02/04/25 17:25) Nitroglycerin Sublingual (Ntrostat Subli (02/04/25 17:30) Morphine Sulfate Injection (02/04/25 17:30) Stat Ekg For Chest Pain (02/04/25:25) Notify Md Of Changes From Base (02/04/25:25) Compounder Flavorings For 24 Hours (02/04/25:25) Emergency Dysrhythmia Protocol (02/04/25:25) Rhythm Strips Once Every Shift (02/04/25 17:25) Oxygen By Nasal Cannula (02/04/25:25) Vital Signs Date Time Temp Pulse Resp B/P (MAP) Pulse Ox O2 Delivery O2 Flow Rate FiO2 02/04/25 16:15 96 Room Air* 0 21 02/04/25 15:40 98.7 99 23 128/73 (91) 96 98.7 02/04/25 15:21 98.7 107 16 120/63 95 98.7 02/04/25 15:12 97 Laboratory Tests Test 02/04/25 16:03 Lactic Acid Level 3.1 mmol/L (0.4-2.0) *H White Blood Count 7.2 10^3/uL (4.4-10.8) Medications Medications Dose Ordered Sig/Janee Route Start Time Stop Time Status Last Admin Dose Admin Ceftriaxone Sodium 50 ml @ 100 mls/hr ONCE ONCE IV 02/04/25 16:45 02/04/25 17:14 DC 02/04/25 17:01 100 MLS/HR Assessment/Plan Assessment/Plan Generalized weakness UTI (urinary tract infection) Metabolic encephalopathy Sepsis, unspecified organism Hypomagnesemia Pneumonia, unspecified organism Plan 1. Admit to telemetry unit 2. Breathing treatment 3. Pain control management 4. IV antibiotic management 5. Management of fluids and electrolytes 6. Consultation for hospitalist 7. Diagnostic test chest x-ray 8. DVT prophylaxis-on aspirin 9. Repeat labs CBC, CMP in a.m. 10. Home medication reviewed and reconciled 11. Continue with current medical management 12. Treatment plan discussed with patient and RN. Patient verbalized understanding. Plan discussed with: Patient, Other (RN) My Orders Orders - CHERYLE MCFARLAND DNP Procedure Category Date Status Time Consistent DIET 02/04/25 Transmitted Carb(Ccho)Diabetes Dinner Ceftriaxone 1gm/50ml PHA 02/05/25 In Process (Rocephin) 09:00 Azithromycin 500mg/ PHA 02/05/25 Logged 250ml (Zithromax 50 10:00 Azithromycin 500mg/ PHA 02/04/25 Logged 250ml (Zithromax 50 17:00 Atorvastatin (Lipitor) PHA 02/04/25 In Process 22:00 Aspirin Tablet PHA 02/05/25 In Process 10:00 Metoprolol Tartrate PHA 02/04/25 In Process Tablet (Lopressor Ta 22:00 Famotidine Injection PHA 02/04/25 In Process (Pepcid Injection) 22:00 Magnesium Sulfate PHA 02/04/25 In Process 1gm/100ml 17:00 Glucose Blood PHA 02/04/25 In Process (Accu-Chek Comfort 20:00 Insulin R (Human) PHA 02/04/25 In Process (Insulin R) 20:00 Dextrose 50% Syringe PHA 02/04/25 In Process 17:00 Allergies CALOS 02/04/25 In Process 16:53 Code Status CODE 02/04/25 Transmitted 16:53 Sodium Chloride Lock PHA 02/04/25 In Process (Saline Lock Ns) 22:00 Oxygen Per Hour RT 02/04/25 Transmitted 16:53 Hydrocodone-Acet PHA 02/04/25 In Process 5/325mg Tab (Primrose 17:00 Ondansetron Hcl PHA 02/04/25 In Process (Zofran) 17:00 Docusate Sodium PHA 02/04/25 In Process Capsule (Colace 17:00 Fall Risk Precautions CALOS 02/04/[address] 16:53 Complete Blood Count LAB 02/05/25 Verified 04:00 Comprehensive LAB 02/05/25 Verified Metabolic Panel 04:00 Condition: Serious CALOS 02/04/25 In Process 16:53 Acetaminophen Tablet PHA 02/04/25 In Process (Tylenol Tablet) 17:00 Maintain Bed Rest CALOS 02/04/25 In Process 16:[address] [facility] 02/04/25 In Process Compression Device Levofloxacin Levaquin PHA 02/05/25 Verified 10:00 Levofloxacin Levaquin PHA 02/04/25 Verified 17:30 Admit ADMIT 02/04/25 Verified 17:[address] [facility] 02/04/25 Verified Sublingual (Ntrostat 17:30 Morphine Sulfate PHA 02/04/25 Verified Injection 17:30 [address] Ekg For Chest [facility] 02/04/25 Verified Pain 17:25 Notify Md Of Changes [facility] 02/04/25 Verified From Base 17:[address] [facility] 02/04/25 Verified 24 Hours 17:[address] [facility] 02/04/25 Verified Protocol 17:[address] [facility] 02/04/25 Verified Every Shift 17:25 Oxygen By Nasal RT 02/04/25 Verified Cannula 17:25 Problem List: (1) Generalized weakness (2) UTI (urinary tract infection) (3) Metabolic encephalopathy (4) Sepsis, unspecified organism (5) Hypomagnesemia (6) Pneumonia, unspecified organism Date of Service: Feb 04, 2025 Billing Provider: CHERYLE MCFARLAND DNP Common Visit Codes: [id number] INP/OBS CARE (HIGH) CHERYLE MCFARLAND DNP Feb 04, 2025 17:30
[2025-02-04 18:51] VITALS: BP 135/64; PULSE 78; RESP 18; TEMP 97.8; O2SAT 96
[2025-02-04 20:00] VITALS: PULSE 78; RESP 18
[2025-02-04] MEDS: ACCU-CHEK COMFORT CURVE STRIP VI SCH (20:00)
[2025-02-04 20:32] VITALS: BP 124/75; PULSE 93; RESP 18; TEMP 97.9; O2SAT 96
[2025-02-04] MEDS: MAGNESIUM SULFATE 1GM/100ML 100 ML IV ONE (20:35)
[2025-02-04] MEDS: METOPROLOL TARTRATE 25 MG TAB PO SCH (20:36)
[2025-02-04] MEDS: ATORVASTATIN 20 MG TAB PO SCH (20:36)
[2025-02-04] MEDS: FAMOTIDINE (10MG/ML) 2ML VL IV SCH (20:37)
[2025-02-04] MEDS: SODIUM CHLORIDE 0.9% 1,000 ML IV SCH (20:39)
[2025-02-04] MEDS: SODIUM CHLORIDE 0.9% 500 ML IV ONE (21:35)
[2025-02-04] MEDS: InsuLIN REG 1unit/0.01ml Soln (100units/ml) SC SCH (21:42)
[2025-02-04] MEDS: SODIUM CHLOR 0.9% PF (SALINE LOCK) 10ML VIAL/SYR IV SCH (22:00)
[2025-02-05] VITALS (8 sets, daily range): BP systolic 105–155; BP diastolic 61–73; PULSE 64–85; RESP 16–18; TEMP 97.9–98.7; O2SAT 94–99
[2025-02-05] MEDS: HYDROcodone-ACET 5/325MG TAB PO PRN (00:17)
[2025-02-05 00:25] LABS: Lactic Acid w/Reflex 3.6 mmol/L (0.4-2.0)
[2025-02-05 06:45] LABS: Hematocrit 38.3 % (41.0-53.0); Hemoglobin 13.0 g/dL (13.5-17.5); Mean Corpuscular Hemoglobin 29.6 pg (28.0-32.0); Mean Corpuscular Volume 87.5 fL (80.0-100.0); Nucleated Red Blood Cells % 0.2 %
[2025-02-05 07:06] LABS: Alkaline Phosphatase 47 U/L (46-116); Anion Gap 11 (5-15); BUN/Creatinine Ratio 13.2 (10.0-20.0); Blood Urea Nitrogen 12 mg/dL (9-23); Calcium 8.9 mg/dL (8.7-10.4); Carbon Dioxide 27 mmol/L (20-31); Total Protein 6.5 g/dL (5.7-8.2)
[2025-02-05 07:07] LABS: Albumin 3.5 g/dL (3.2-4.8); Bilirubin, Total 0.5 mg/dL (0.2-1.0)
[2025-02-05 07:11] LABS: Chloride 96 mmol/L (98-107); Potassium 2.9 mmol/L (3.5-5.1); Sodium 134 mmol/L (136-145)
[2025-02-05 07:12] LABS: Alanine Aminotransferase 52 U/L (7-40); Glucose 155 mg/dL (74-106)
[2025-02-05] MEDS ORDERED: AZITHROMYCIN 500MG/ 250ML 250 ML IV SCH (10:00)
[2025-02-05] MEDS: ACETAMINOPHEN 325 MG TAB PO PRN (11:41)
[2025-02-05] MEDS ORDERED: LISI2.5T47 PO (13:17)
[2025-02-05] MEDS ORDERED: FERR325T20 PO (13:17)
[2025-02-05] MEDS ORDERED: DIGO0.12 PO (13:17)
[2025-02-05] MEDS ORDERED: SUCR1TAB PO (13:17)
[2025-02-05] MEDS ORDERED: CHLO25TA2 PO (13:17)
--- NOTE | 2025-02-05 13:44 | DVHPN2 ---
Subjective Patient continues to report having some generalized weakness Reviewed: Care Plan, H&P, Labs, Medications Changes from previous H/P or p: No Changes General: Per HPI Eyes: No Pain, No Vision change, No Conjunctivae inflammation, No Eyelid inflammation, No Other, No Redness ENT: No Ear pain, No Ear discharge, No Nose pain, No Nose discharge, No Nose congestion, No Mouth pain, No Mouth swelling, No Throat pain, No Throat swelling, No Other Cardiovascular: No Chest Pain, No Palpitations, No Orthopnea, No Paroxysmal Noc. Dyspnea, No Edema, No Lt Headedness, No Other Respiratory: No Cough, No Dry, No Shortness of breath, No SOB with excertion, No Wheezing, No Hemoptysis, No Pleuritic Pain, No Sputum, No Other Gastrointestinal: No Nausea, No Vomiting, No Abdominal Pain, No Diarrhea, No Constipation, No Melena, No Hematochezia, No Other Genitourinary: No Dysuria, No Frequency, No Incontinence, No Hematuria, No Retention, No Other Musculoskeletal: No other, No neck pain, No shoulder pain, No arm pain, No back pain, No hand pain, No leg pain, No foot pain Skin: No Rash, No Lesions, No Jaundice, No Bruising, No Other Objective Vitals Vital Signs Date Time Temp Pulse Resp B/P (MAP) Pulse Ox O2 Delivery O2 Flow Rate FiO2 02/05/25 13:23 98.3 78 18 117/62 (80) 99 98.3 02/04/25 20:00 Room Air* 0 21 Intake/Output Intake and Output 02/05/25 07:00 Intake Total 450 ml Output Total 100 ml Balance 350 ml Intake Oral 400 ml IV Total 50 ml Output Urine Total 100 ml # Voids 4 General Appearance: Alert, Oriented X3, Cooperative, No acute distress HEENT: Atraumatic, PERRLA Cardiovascular: Normal S1, Normal S2 Abdomen: Normal bowel sounds, Soft, No tenderness, No hepatospenomegaly, No masses Genitourinary: No Apparent Abnormalities Musculoskeletal: Normal sensory function, Normal motor function Skin: Dry, Intact Psych/Mental Status: Mental status NL, Mood NL Medications Current Medications Medications Dose Ordered Sig/Janee Route Start Time Stop Time Status Last Admin Dose Admin Ceftriaxone Sodium 50 ml @ 100 mls/hr DAILY@09 IV 02/05/25 09:00 02/05/25 09:44 100 MLS/HR Atorvastatin Calcium 20 mg HS PO 02/04/25 22:00 02/04/25 20:36 20 MG Aspirin 81 mg DAILY PO 02/05/25 10:00 02/05/25 09:39 81 MG Metoprolol Tartrate 25 mg BID PO 02/04/25 22:00 02/05/25 09:40 25 MG Famotidine 20 mg Q12HR IV 02/04/25 22:00 02/05/25 09:29 20 MG Diagnostic Test (Pha) 1 strip IQ4HR 02/04/25 20:00 02/05/25 11:42 1 STRIP Insulin Human Regular IQ4HR SC 02/04/25 20:00 02/05/25 11:54 6 UNITS Dextrose 50 ml UD PRN IV 02/04/25 17:00 Sodium Chloride 10 ml Q8HR IV 02/04/25 22:00 02/05/25 05:58 10 ML Acetaminophen/ Hydrocodone Bitart 1 tab Q4HP PRN PO 02/04/25 17:00 02/05/25 00:17 1 TAB Ondansetron HCl 4 mg Q4HP PRN IV 02/04/25 17:00 Docusate Sodium 100 mg BIDPRN PRN PO 02/04/25 17:00 Acetaminophen 650 mg Q6HP PRN PO 02/04/25 17:00 02/05/25 11:41 650 MG Levofloxacin/ Dextrose 100 ml @ 100 mls/hr DAILY IV 02/05/25 10:00 Hold Nitroglycerin 0.4 mg Q5MINP PRN SL 02/04/25 17:30 Morphine Sulfate 2 mg Q30M PRN IV 02/04/25 17:30 Sodium Chloride 1,000 ml @ 60 mls/hr [id number] IV 02/04/25 17:30 02/05/25 10:10 60 MLS/HR Laboratory Results Laboratory Tests 02/05/25 05:53 Chemistry Test 02/04/25 16:03 02/05/25 05:53 Albumin 3.9 g/dL (3.2-4.8) 3.5 g/dL (3.2-4.8) Calcium Level 9.7 mg/dL (8.7-10.4) 8.9 mg/dL (8.7-10.4) Magnesium Level 1.5 mg/dL (1.6-2.6) L Total Protein 6.8 g/dL (5.7-8.2) 6.5 g/dL (5.7-8.2) Coagulation Test 02/04/25 16:03 Prothrombin Time 10.3 sec (9.3-11.8) Prothrombin Time INR 0.97 (0.9-1.15) Activated Partial Thromboplast Time 22.8 SEC (24.5-34.5) L Cardiac Markers Test 02/04/25 16:03 B-Type Natriuretic Peptide 195.85 pg/mL (0-100) LFT Test 02/04/25 16:03 02/05/25 05:53 Alanine Aminotransferase (ALT) 58 U/L (7-40) H 52 U/L (7-40) H Alkaline Phosphatase 53 U/L (46-116) 47 U/L (46-116) Aspartate Amino Transferase (AST) 27 U/L (13-40) 29 U/L (13-40) Total Bilirubin 0.5 mg/dL (0.2-1.0) 0.5 mg/dL (0.2-1.0) Urinalysis Test 02/04/25 16:21 Urine Color Light-yellow (Yellow) Urine Clarity Clear (Clear) Urine pH 7.5 (5.0-9.0) Urine Specific [place] 1.011 (1.001-1.035) Urine Protein Negative (Negative) Urine Ketones Negative (Negative) Urine Blood Negative /uL (Negative) Urine Nitrite Negative (Negative) Urine Bilirubin Negative (Negative) Urine Urobilinogen Normal mg/dL (Negative) Urine Leukocyte Esterase 3+ /uL (Negative) Urine RBC 2 /hpf (0 - 3) Urine Microscopic WBC 178 /HPF (0-3) H Urine Squamous Epithelial Cells Few /hpf (<5) Urine Bacteria None seen /hpf (None Seen) Urine Glucose 2+ mg/dL (Normal) H Microbiology Microbiology Date/Time Source Procedure Growth Status 02/04/25 16:20 Voided Urine Urine Culture - Preliminary Resulted Labs and/or images reviewed: Labs reviewed by me, Image(s) reviewed by me Assessment/Plan Assessment/Plan Impression: -complicated cystitis -? BPH -diabetes mellitus -obesity -primary hypertension -dyslipidemia -? CHF Plan: -urine culture pending -continue IV antibiotic therapy with Rocephin -regular insulin sliding scale -check PSA, A1c -continue antihypertensives, stand -we will obtain history on questionable history of CHF. Total time spent with patient discussing and formulating plan of care: 35 minutes. This medical document was created using an electronic medical record system with [employer] dictation system. Although this document has been carefully reviewed, there may still be some phonetic and typographical errors. These areas are purely typographical due to imperfections of the software programs, and do not reflect any compromise in the patient's medical care. Plan discussed with: Patient, Other (RN) My Orders Orders - ANDREW LOWE NP Procedure Category Date Status Time Potassium Chloride PHA 02/05/25 In Process (Potassium Chloride). 13:30 Complete Blood Count LAB 02/06/25 Verified 04:00 Basic Metabolic Panel LAB 02/06/25 Verified 04:00 Magnesium LAB 02/06/25 Verified 04:00 Date of Service: Feb 05, 2025 Billing Provider: ANDREW LOWE NP Common Visit Codes: [id number] INP/OBS CARE(HIGH) ANDREW LOWE NP Feb 05, 2025 13:44
[2025-02-05] MEDS: POTASSIUM CHLORIDE 40 MEQ, LIDOCAINE 1% (LOCAL ANESTH.) 4 ML in SODIUM CHL 0.9% 250 ML IV ONE (15:43)
[2025-02-06] VITALS (8 sets, daily range): BP systolic 115–147; BP diastolic 66–84; PULSE 63–89; RESP 17–18; TEMP 97.7–98.6; O2SAT 94–100
[2025-02-06 04:09] LABS: Hematocrit 37.0 % (41.0-53.0); Hemoglobin 12.8 g/dL (13.5-17.5); Mean Corpuscular Hemoglobin 30.0 pg (28.0-32.0); Mean Corpuscular Volume 86.5 fL (80.0-100.0); Nucleated Red Blood Cells % 0.1 %
[2025-02-06 04:10] LABS: Chloride 99 mmol/L (98-107)
[2025-02-06 04:11] LABS: Anion Gap 9 (5-15); Carbon Dioxide 27 mmol/L (20-31); Potassium 3.2 mmol/L (3.5-5.1); Sodium 135 mmol/L (136-145)
[2025-02-06 04:12] LABS: Calcium 8.6 mg/dL (8.7-10.4)
[2025-02-06 04:17] LABS: BUN/Creatinine Ratio 10.8 (10.0-20.0); Magnesium 1.6 mg/dL (1.6-2.6)
[2025-02-06 04:28] LABS: Blood Urea Nitrogen 9 mg/dL (9-23); Glucose 191 mg/dL (74-106)
--- NOTE | 2025-02-06 09:30 | DVHPN2 ---
Subjective Patient continues to report having some generalized weakness Reviewed: Care Plan, H&P, Labs, Medications Changes from previous H/P or p: No Changes General: Per HPI Eyes: No Pain, No Vision change, No Conjunctivae inflammation, No Eyelid inflammation, No Other, No Redness ENT: No Ear pain, No Ear discharge, No Nose pain, No Nose discharge, No Nose congestion, No Mouth pain, No Mouth swelling, No Throat pain, No Throat swelling, No Other Cardiovascular: No Chest Pain, No Palpitations, No Orthopnea, No Paroxysmal Noc. Dyspnea, No Edema, No Lt Headedness, No Other Respiratory: No Cough, No Dry, No Shortness of breath, No SOB with excertion, No Wheezing, No Hemoptysis, No Pleuritic Pain, No Sputum, No Other Gastrointestinal: No Nausea, No Vomiting, No Abdominal Pain, No Diarrhea, No Constipation, No Melena, No Hematochezia, No Other Genitourinary: No Dysuria, No Frequency, No Incontinence, No Hematuria, No Retention, No Other Musculoskeletal: No other, No neck pain, No shoulder pain, No arm pain, No back pain, No hand pain, No leg pain, No foot pain Skin: No Rash, No Lesions, No Jaundice, No Bruising, No Other Objective Vitals Vital Signs Date Time Temp Pulse Resp B/P (MAP) Pulse Ox O2 Delivery O2 Flow Rate FiO2 02/06/25 09:15 98.5 85 18 136/84 (101) 94 98.5 02/05/25 20:00 Nasal Cannula* 2 28 Intake/Output Intake and Output 02/06/25 07:00 Intake Total 2825 ml Output Total 1300 ml Balance 1525 ml Intake Oral 775 ml IV Total 2050 ml Output Urine Total 1300 ml # Bowel Movements 1 General Appearance: Alert, Oriented X3, Cooperative, No acute distress HEENT: Atraumatic, PERRLA Cardiovascular: Normal S1, Normal S2 Abdomen: Normal bowel sounds, Soft, No tenderness, No hepatospenomegaly, No masses Genitourinary: No Apparent Abnormalities Musculoskeletal: Normal sensory function, Normal motor function Skin: Dry, Intact Psych/Mental Status: Mental status NL, Mood NL Medications Current Medications Medications Dose Ordered Sig/Janee Route Start Time Stop Time Status Last Admin Dose Admin Ceftriaxone Sodium 50 ml @ 100 mls/hr DAILY@09 IV 02/05/25 09:00 02/06/25 08:58 100 MLS/HR Atorvastatin Calcium 20 mg HS PO 02/04/25 22:00 02/05/25 21:33 20 MG Aspirin 81 mg DAILY PO 02/05/25 10:00 02/06/25 08:58 81 MG Metoprolol Tartrate 25 mg BID PO 02/04/25 22:00 02/06/25 08:58 25 MG Famotidine 20 mg Q12HR IV 02/04/25 22:00 02/05/25 21:33 20 MG Diagnostic Test (Pha) 1 strip IQ4HR 02/04/25 20:00 02/06/25 08:00 1 STRIP Insulin Human Regular IQ4HR SC 02/04/25 20:00 02/06/25 09:10 9 UNITS Dextrose 50 ml UD PRN IV 02/04/25 17:00 Sodium Chloride 10 ml Q8HR IV 02/04/25 22:00 02/06/25 08:59 10 ML Acetaminophen/ Hydrocodone Bitart 1 tab Q4HP PRN PO 02/04/25 17:00 02/05/25 00:17 1 TAB Ondansetron HCl 4 mg Q4HP PRN IV 02/04/25 17:00 Docusate Sodium 100 mg BIDPRN PRN PO 02/04/25 17:00 Acetaminophen 650 mg Q6HP PRN PO 02/04/25 17:00 02/05/25 20:34 650 MG Nitroglycerin 0.4 mg Q5MINP PRN SL 02/04/25 17:30 Morphine Sulfate 2 mg Q30M PRN IV 02/04/25 17:30 Laboratory Results Laboratory Tests 02/06/25 03:39 Chemistry Test 02/06/25 03:39 Calcium Level 8.6 mg/dL (8.7-10.4) L Magnesium Level 1.6 mg/dL (1.6-2.6) HgA1c, TSH Test 02/06/25 03:39 Hemoglobin A1c Pending Urinalysis Test 02/04/25 16:21 Urine Color Light-yellow (Yellow) Urine Clarity Clear (Clear) Urine pH 7.5 (5.0-9.0) Urine Specific [place] 1.011 (1.001-1.035) Urine Protein Negative (Negative) Urine Ketones Negative (Negative) Urine Blood Negative /uL (Negative) Urine Nitrite Negative (Negative) Urine Bilirubin Negative (Negative) Urine Urobilinogen Normal mg/dL (Negative) Urine Leukocyte Esterase 3+ /uL (Negative) Urine RBC 2 /hpf (0 - 3) Urine Microscopic WBC 178 /HPF (0-3) H Urine Squamous Epithelial Cells Few /hpf (<5) Urine Bacteria None seen /hpf (None Seen) Urine Glucose 2+ mg/dL (Normal) H Microbiology Microbiology Date/Time Source Procedure Growth Status 02/04/25 17:08 Blood Blood Culture - Preliminary NO GROWTH AFTER 24 HOURS OF INCUBATION. Resulted 02/04/25 16:20 Voided Urine Urine Culture - Preliminary Resulted Assessment/Plan Assessment/Plan Impression: -complicated cystitis -? BPH -diabetes mellitus -obesity -primary hypertension -dyslipidemia -? CHF -hypokalemia Plan: Events: No events overnight. Potassium replaced. -urine culture pending -continue IV antibiotic therapy with Rocephin -regular insulin sliding scale -check PSA, A1c -continue antihypertensives, stand -we will obtain history on questionable history of CHF. Total time spent with patient discussing and formulating plan of care: 35 minutes. This medical document was created using an electronic medical record system with [employer] dictation system. Although this document has been carefully reviewed, there may still be some phonetic and typographical errors. These areas are purely typographical due to imperfections of the software programs, and do not reflect any compromise in the patient's medical care. Plan discussed with: Patient, Other (RN) My Orders Orders - ANDREW LOWE NP Procedure Category Date Status Time Hemoglobin A1c LAB 02/06/25 In Process 09:05 Psa Total+% Free LAB 02/06/25 Logged 09:05 Potassium Effervesent PHA 02/06/25 Logged Tab (Klor-Con/Ef) 09:15 Transfer Orders XFER 02/06/25 Transmitted 09:05 Date of Service: Feb 06, 2025 Billing Provider: ANDREW LOWE NP Common Visit Codes: [id number] INP/OBS CARE(HIGH) ANDREW LOWE NP Feb 06, 2025 09:30
[2025-02-06] MEDS: POTASSIUM EFFERVESENT TAB 25 MEQ PO ONE (09:43)
[2025-02-07 01:00] VITALS: BP 112/63; PULSE 71; RESP 17; TEMP 97.7; O2SAT 99
[2025-02-07 05:00] VITALS: BP 131/64; PULSE 82; RESP 18; TEMP 97.8; O2SAT 96
[2025-02-07 06:07] LABS: Prostate Specific Antigen 9.9 ng/mL (0.0-4.0)
[2025-02-07 08:00] VITALS: PULSE 84; RESP 18; O2SAT 96
[2025-02-07 08:26] VITALS: BP 116/75; PULSE 79; RESP 17; TEMP 98.2; O2SAT 94
[2025-02-07] MEDS ORDERED: CIPR500T4 PO (11:44)
--- NOTE | 2025-02-07 11:52 | DVHDS2 ---
Discharge Summary Date of Admission Feb 04, 2025 at 17:25 Date of Discharge: Feb 07, 2025 Admitting Diagnosis Generalized weakness Labs/Diagnostic Data: Laboratory Results Test 02/07/25 04:31 02/06/25 03:39 02/05/25 08:48 02/05/25 05:53 POC Glucose 199 mg/dl (70-106) White Blood Count 5.4 10^3/uL (4.4-10.8) Red Blood Count 4.27 10^6/uL (4.5-5.90) Hemoglobin 12.8 g/dL (13.5-17.5) Hematocrit 37.0 % (41.0-53.0) Mean Corpuscular Volume 86.5 fL (80.0-100.0) Mean Corpuscular Hemoglobin 30.0 pg (28.0-32.0) Mean Corpuscular Hemoglobin Concent 34.7 g/dL (32.0-36.0) Red Cell Distribution Width 16.8 % (11.8-14.3) Platelet Count 155 10^3/uL (140-450) Mean Platelet Volume 6.9 fL (6.9-10.8) Neutrophils (%) (Auto) 71.7 % (37.0-80.0) Lymphocytes (%) (Auto) 15.0 % (10.0-50.0) Monocytes (%) (Auto) 11.0 % (0.0-12.0) Eosinophils (%) (Auto) 1.7 % (0.0-7.0) Basophils (%) (Auto) 0.6 % (0.0-2.0) Neutrophils # (Auto) 3.9 10 ^3/uL (1.6-8.6) Lymphocytes # (Auto) 0.8 10 ^3/uL (0.4-5.4) Monocytes # (Auto) 0.6 10 ^3/uL (0-1.3) Eosinophils # (Auto) 0.1 10 ^3/uL (0-0.8) Basophils # (Auto) 0 10 ^3/uL (0-0.2) Nucleated Red Blood Cells 0.1 % Sodium Level 135 mmol/L (136-145) Potassium Level 3.2 mmol/L (3.5-5.1) Chloride Level 99 mmol/L (98-107) Carbon Dioxide Level 27 mmol/L (20-31) Anion Gap 9 (5-15) Blood Urea Nitrogen 9 mg/dL (9-23) Creatinine 0.83 mg/dL (0.700-1.30) Glomerular Filtration Rate Calc 91 mL/min (>90) BUN/Creatinine Ratio 10.8 (10.0-20.0) Serum Glucose 191 mg/dL (74-106) Hemoglobin A1c 8.6 % A1C (<5.7) Calcium Level 8.6 mg/dL (8.7-10.4) Magnesium Level 1.6 mg/dL (1.6-2.6) Free Prostate Specific Antigen 0.73 ng/mL (N/A) Percent Free Prostate Specific Ag 7.4 % (.) Prostate Specific Antigen Total 9.9 ng/mL (0.0-4.0) Lactic Acid Level 1.6 mmol/L (0.4-2.0) Total Bilirubin 0.5 mg/dL (0.2-1.0) Aspartate Amino Transferase (AST) 29 U/L (13-40) Alanine Aminotransferase (ALT) 52 U/L (7-40) Alkaline Phosphatase 47 U/L (46-116) Total Protein 6.5 g/dL (5.7-8.2) Albumin 3.5 g/dL (3.2-4.8) Test 02/04/25 19:05 02/04/25 16:57 02/04/25 16:21 02/04/25 16:03 Troponin I High Sensitivity 28 ng/L (</=54) Ammonia < 10 umol/L (11-32) Urine Color Light-yellow (Yellow) Urine Clarity Clear (Clear) Urine pH 7.5 (5.0-9.0) Urine Specific [place] 1.011 (1.001-1.035) Urine Protein Negative (Negative) Urine Ketones Negative (Negative) Urine Blood Negative /uL (Negative) Urine Nitrite Negative (Negative) Urine Bilirubin Negative (Negative) Urine Urobilinogen Normal mg/dL (Negative) Urine Leukocyte Esterase 3+ /uL (Negative) Urine RBC 2 /hpf (0 - 3) Urine Microscopic WBC 178 /HPF (0-3) Urine Squamous Epithelial Cells Few /hpf (<5) Urine Bacteria None seen /hpf (None Seen) Urine Glucose 2+ mg/dL (Normal) Prothrombin Time 10.3 sec (9.3-11.8) Prothrombin Time INR 0.97 (0.9-1.15) Activated Partial Thromboplast Time 22.8 SEC (24.5-34.5) B-Type Natriuretic Peptide 195.85 pg/mL (0-100) Other Laboratory Tests 02/06/25 03:39 Brief Hx & Hospital Course: History of Present Illness The patient is a 74-year-old male with past medical history of diabetes mellitus, hyperlipidemia, and hypertension who presented to [facility] ED with complaint of generalized weakness associated with drowsy for the past 1 day. Patient was seen and evaluated in the ED, laboratory data shows WBC 7.2, platelets 198, sodium 135, potassium 3.7, BUN 15, creatinine 0.94, GFR 84, glucose 214, calcium 9.7, magnesium 1.5, troponin 25, AST 27, ALT 58, lactic acid 3.1, blood pressure 128/73, heart rate 99, temperature 98.7 F, O2 saturation 96% on room air. Urinalysis positive for urinary tract infection. Chest x-ray revealing bronchus cannula crowding due to low lung volume with pulmonary vascular congestion; underlying effusion/atelectasis/pneumonia can not be excluded. Please see medication orders section in the computer. On my assessment, patient denied chest pain, no headache, diaphoresis, shortness of breaths, no diarrhea, nausea, vomiting, no fever, no chills. Patient was admitted for further evaluation and medical management. Course of hospitalization: Patient was treated with IV Rocephin, gentle IV hydration. Patient was restarted on home antihypertensives as well as being placed on regular insulin sliding scale. Urine culture came back with probable contamination with three different bacteria is growing. Patient has been mentation has improved. Patient will be discharged home as instructed to follow up with his PCP, Dr. Angel in one week. He will be continued on oral antibiotic therapy with ciprofloxacin 500 mg p.o. b.i.d. x1 week. Patient and family are agreeable with discharge plan. All questions answered. Physical examination General: Alert and Oriented x3. No acute distress. Well-nourished. Eyes: EOMI. Anicteric. HENT: Moist mucous membranes. Lungs: Clear to auscultation bilaterally. No accessory muscle use. Cardiovascular: Regular rate and rhythm. No murmur. No JVD. Abdomen: Soft, non-tender and non-distended. No palpable masses. Extremities: No edema. Non-tender. Skin: No rashes or lesions. Warm. Neurologic: No focal neurological deficits. CN II-XII grossly intact, but not individually tested. Psychiatric: Cooperative. Appropriate mood and affect. Total time spent with patient discussing and formulating plan of care: 35 minutes. This medical document was created using an electronic medical record system with [employer] dictation system. Although this document has been carefully reviewed, there may still be some phonetic and typographical errors. These areas are purely typographical due to imperfections of the software programs, and do not reflect any compromise in the patient's medical care. Condition at Discharge: Fair Final Diagnosis/Problems List -complicated cystitis -? BPH -diabetes mellitus -obesity -primary hypertension -dyslipidemia -Probable chronic diastolic HF -hypokalemia Discharge Disposition: Home Discharge Instruct/Medications Diet: Consistent carbohydrate, Cardiac 2g Na,low cholest Activity: No Restrictions, As Tolerated Follow Up/Referral: Follow up with PCP, Dr. Angel in one week Medications: Ciprofloxacin 500 mg p.o. b.i.d. x7 days Continue all home medications Scheduled Chlorthalidone (Chlorthalidone), 1 TAB PO DAILY, (Reported) Ciprofloxacin Hcl (Ciprofloxacin Hcl), 1 TAB PO BID Digoxin (Digoxin), 1 TAB PO DAILY, (Reported) Ferrous Sulfate (Ferosul), 1 TAB PO DAILY, (Reported) Lisinopril (Lisinopril), 1 TAB PO DAILY, (Reported) Sucralfate (Sucralfate), 1 TAB PO BID, (Reported) Sulfamethoxazole W/Trimethopri (Bactrim Ds Tablet), 1 TAB PO BID 36 Discharge Statement: "Patient was advised to return to the ER or call 911 if any headaches, dizziness, shortness of breath, chest pain, abdominal pain, bleeding, fevers, or worsening of medical condition. Patient was counseled about treatment plan, medications, possible side effects, patientverbalized understanding. All questions were answered to the best of my ability. This discharge took greater then 30 minutes in planning, reviewing documentation, counseling the patient, and discussing with other team members." ASSESSMENT ASSESSMENT Assessment Complicated cystitis Date of Service: Feb 07, 2025 Billing Provider: ANDREW LOWE NP Common Visit Codes: [id number]/[id number] DISCH DAY >30min ANDREW LOWE NP Feb 07, 2025 11:52
[2025-02-07 12:17] VITALS: BP 116/75; PULSE 76; RESP 18; TEMP 36.8; O2SAT 98
== END 2025-02-07 13:50 | disposition home or self-care (01) | DRG 689 ==
LOC: ER 15:07 → EDBD 15:07 → OVERFLOW 17:25 → TELE-WESTW 18:46 → WEST WING 02-06 21:44
PROVIDERS: ADMIT Nurse Practitioner Acute Care; ATTEND Nurse Practitioner Acute Care
DX: N30.00 Acute cystitis without hematuria (principal); J18.9 Pneumonia, unspecified organism; I50.32 Chronic diastolic (congestive) heart failure; E83.42 Hypomagnesemia; E11.9 Type 2 diabetes mellitus without complications; I11.0 Hypertensive heart disease with heart failure; E78.5 Hyperlipidemia, unspecified; N30.90 Cystitis, unspecified without hematuria; E66.9 Obesity, unspecified; E87.6 Hypokalemia; Z68.27 Body mass index [BMI] 27.0-27.9, adult; Z79.899 Other long term (current) drug therapy; N40.1 Benign prostatic hyperplasia with lower urinary tract symptoms
CPT/HCPCS: 36415; 70450; 71045; 80048; 80053; 81001; 82140; 82962; 83036; 83605; 83735; 83880; 84154; 84484; 85025; 85610; 85730; 87040; 87086; 93005; 96365; 99291; G0378; J1815; J2003; J3490

== ENCOUNTER 2025-02-19 15:50 | Inpatient (IN) | payer OTHER ==
[~2025-02-19] VITALS: Ht 177.8 cm; Wt 85.8 kg
[~2025-02-19 15:50] MED LIST changes: +CHLO25TA2 PO; +CIPR500T4 PO; +DIGO0.12 PO; +FERR325T20 PO; +LISI2.5T47 PO; +SUCR1TAB PO
--- NOTE | 2025-02-19 16:19 | ED.PDOC ---
GI ASSESSMENT HPI Comments JAC: SEPSIS, N/V/W X1 DAY.Thomas BARBA HPI: Poor Historian. 74-year-old male brought in by ambulance from home for evaluation of one day history of weakness nausea and vomiting coffee-ground emesis. Patient has history of stomach ulcer in the past and just completed a course of antibiotics Cipro for UTI. Patient denies any abdominal pain. Past Medical History: Diabetes hypertension Past Surgical History: REVIEW OF SYSTEMS: CONSTITUTIONAL: Denies acute: fever, diaphoresis, chills, HEAD: Denies acute: headache, photophobia Eyes: Denies acute: Double vision, vision loss, eye pain, eye discharge. EARS: Denies acute: tinnitus, hearing loss, ear discharge, ear pain, THROAT: Denies acute: sore throat, swelling, difficulty swallowing , pain with swallowing, change in voice. NECK: Denies acute: neck pain, neck swelling, stiff neck. HEART: Denies acute : chest pain, palpitations, LUNGS: Denies acute: SOB, wheezing, cough, hemoptysis ABDOMEN: Denies acute: abdominal pain, , diarrhea, melena , , hematochezia SKIN: Denies acute: rash, redness, lesions, itchiness. EXTREMITIES: Denies acute: calf pain, numbness, tingling, weakness, denies pain in extremity. Denies acute: Low back pain. Neuro: Denies acute: focal neurological deficit, motor or sensory focal neurological deficit, tremors, seizure like activity, confusion, dizziness, change in mental status, loss of bowel or bladder function, cauda equina like symptoms. : Denies acute: dysuria, hematuria, flank pain, increase in urinary frequency. PSYCH: Denies acute: hallucination, suicidal ideation, homicidal ideation. PHYSICAL EXAM: General: ---moderate-----acute distress, awake and alert. Appears weak Head: normocephalic, atraumatic. Neck: supple, trachea is midline, no swelling. Throat: Normal phonation. Eyes:, no erythema, no purulent discharge, no proptosis, no icterus. Heart: regular tachycardia., regular rhythm, no significant murmur appreciated. Paced rhythm Lungs: no apparent respiratory distress, Able to speak in full sentences. No wheezing, no rhonchi, no crackles. No stridors Clear to auscultation bilaterally. Abdomen: non tender to palpation, non distended, soft, no guarding, no rebound, + bowel sounds. Noted coffee-ground emesis on his shirt. Neuro: Awake, Alert, oriented to name, self, situation, follows commands GCS=15. Speech is normal. Skin: no petechia, no purpura, no cyanosis, non-pale, not jaundice. Lower extremities: --trace bilateral- Pitting edema no deformity, no focal swelling, no calf TTP. Makes eye contact. moves all four extremities. Face: no apparent facial droop. ED COURSE: DISCLAIMER: This medical document was created using an electronic medical record system with voice recognition software and computerized dictation system. Although this document has been carefully reviewed, there might still be some phonetic and typographical errors. Occasional wrong-word or "sound-alike" substitutions may have occurred due to the inherent limitations of voice recognition software. These areas are purely typographical due to imperfections of the software programs and do not reflect any compromise in the patient's medical care. Please read the chart carefully and recognize, using context, where these substitutions have occurred. Chief Complaint: Nausea/Vomiting Time Seen by MD: 15:54 Primary Care Provider: GIOVANNI Reviewed Notes: Nurses Notes, Allergies Allergies: Coded Allergies: NO KNOWN ALLERGIES (Unverified , 02/19/25) Home Meds Active Scripts Ciprofloxacin Hcl (Ciprofloxacin Hcl) 500 Mg Tab, 1 TAB PO BID for 7 Days, #14 TAB Prov:ANDREW LOWE GEOGRAPHIC INFORMATION SYSTEMS MANAGER 02/07/25 Sulfamethoxazole W/Trimethopri (Bactrim Ds Tablet) 1 Tab Tb, 1 TAB PO BID for 10 Days, #20 TAB Prov:PRAVIN VILLATORO PAC 07/18/22 Reported Medications Chlorthalidone (Chlorthalidone) 25 Mg Tab, 1 TAB PO DAILY 02/05/25 Ferrous Sulfate (Ferosul) 325 Mg Tab, 1 TAB PO DAILY 02/05/25 Sucralfate (Sucralfate) 1 Gm Tab, 1 TAB PO BID 02/05/25 Lisinopril (Lisinopril) 2.5 Mg Tab, 1 TAB PO DAILY 02/05/25 Digoxin (Digoxin) 125 Mcg Tab, 1 TAB PO DAILY 02/05/25 Information Source: Patient, Emergency Med Personnel Mode of Arrival: EMS Past Medical History PAST MEDICAL HISTORY: DM, HTN, Denies Surgical History: Denies all surgeries Family History Family History: Unknown Social History Smoker: Non-Smoker Alcohol: Denies ETOH Use Drugs: Denies Drug Use Lives In: Home Was a procedure done? Was a procedure done?: No GI differential Dx Differential Diagnosis: Gastritis/PUD, Gastroenteritis, GI hemorrhage, Hepat itis, UTI, Dehydration, Diabetes/ DKA, Electrolyte Imbalance, Food Poisoning, Bacterial, Parasitic, Viral, Hypovolemia, Other (Includes but not limited to thyroid disease, encephalopathy, electrolyte abnormality, sepsis, infection, intracranial pathology, drug adverse effects, arrhythmia, kidney insufficiency, ACS, CVA, malignancy, anemia) X-Ray, Labs, Meds, VS Vital Signs Date Time Temp Pulse Resp B/P (MAP) Pulse Ox O2 Delivery O2 Flow Rate FiO2 02/19/25 20:51 100.4 02/19/25 20:20 100.4 81 14 95/42 (59) 100.4 02/19/25 19:03 91 13 130/49 (76) 93 02/19/25 18:37 84 02/19/25 18:00 99 20 98/54 (69) 93 02/19/25 16:34 99.1 125 19 102/56 (71) 95 99.1 02/19/25 16:34 125 18 95 Room Air 02/19/25 15:57 115 02/19/25 15:55 100.0 111 18 138/86 96 100.0 Lab Test 02/19/25 20:39 02/19/25 19:15 02/19/25 17:05 Range/Units Urine Color Light-yellow Yellow Urine Clarity Turbid H Clear Urine pH 6.5 5.0-9.0 Urine Specific [place] 1.012 1.001-1.035 Urine Protein Negative Negative Urine Ketones Negative Negative Urine Blood Negative Negative /uL Urine Nitrite Negative Negative Urine Bilirubin Negative Negative Urine Urobilinogen Normal Negative mg/dL Urine Leukocyte Esterase 3+ Negative /uL Urine RBC 3 0 - 3 /hpf Urine Microscopic WBC 337 H 0-3 /HPF Urine Squamous Epithelial Cells Few <5 /hpf Urine Bacteria None seen None Seen /hpf Urine Glucose Normal Normal mg/dL Lactic Acid Level 4.1 *H 2.4 *H 0.4-2.0 mmol/L White Blood Count 10.8 4.4-10.8 10^3/uL Red Blood Count 4.88 4.5-5.90 10^6/uL Hemoglobin 14.3 13.5-17.5 g/dL Hematocrit 42.1 41.0-53.0 % Mean Corpuscular Volume 86.3 80.0-100.0 fL Mean Corpuscular Hemoglobin 29.4 28.0-32.0 pg Mean Corpuscular Hemoglobin Concent 34.1 32.0-36.0 g/dL Red Cell Distribution Width 16.7 H 11.8-14.3 % Platelet Count 319 140-450 10^3/uL Mean Platelet Volume 6.9 6.9-10.8 fL Neutrophils (%) (Auto) 88.9 H 37.0-80.0 % Lymphocytes (%) (Auto) 6.0 L 10.0-50.0 % Monocytes (%) (Auto) 4.7 0.0-12.0 % Eosinophils (%) (Auto) 0.0 0.0-7.0 % Basophils (%) (Auto) 0.4 0.0-2.0 % Neutrophils # (Auto) 9.6 H 1.6-8.6 10 ^3/uL Lymphocytes # (Auto) 0.6 0.4-5.4 10 ^3/uL Monocytes # (Auto) 0.5 0-1.3 10 ^3/uL Eosinophils # (Auto) 0 0-0.8 10 ^3/uL Basophils # (Auto) 0 0-0.2 10 ^3/uL Nucleated Red Blood Cells 0.2 % Prothrombin Time 10.7 9.3-11.8 sec Prothrombin Time INR 1.01 0.9-1.15 Activated Partial Thromboplast Time 22.1 L 24.5-34.5 SEC Sodium Level 132 L 136-145 mmol/L Potassium Level 2.9 L 3.5-5.1 mmol/L Chloride Level 94 L 98-107 mmol/L Carbon Dioxide Level 24 20-31 mmol/L Anion Gap 14 5-15 Blood Urea Nitrogen 12 9-23 mg/dL Creatinine 1.01 0.700-1.30 mg/dL Glomerular Filtration Rate Calc 77 >90 mL/min BUN/Creatinine Ratio 11.9 10.0-20.0 Serum Glucose 183 H 74-106 mg/dL Calcium Level 10.0 8.7-10.4 mg/dL Total Bilirubin 0.4 0.2-1.0 mg/dL Aspartate Amino Transferase (AST) 25 13-40 U/L Alanine Aminotransferase (ALT) 39 7-40 U/L Alkaline Phosphatase 62 46-116 U/L Total Protein 8.0 5.7-8.2 g/dL Albumin 4.3 3.2-4.8 g/dL Microbiology Date/Time Source Procedure Growth Status 02/19/25 20:39 Voided Urine Urine Culture - Final Complete 02/19/25 17:05 Blood Blood Culture - Final NO GROWTH AFTER 5 DAYS OF INCUBATION. Complete 02/19/25 16:50 Blood Blood Culture - Final NO GROWTH AFTER 5 DAYS OF INCUBATION. Complete Time of 1ST Reevaluation: 00:00 Reevaluation 1ST: Patient Education/Counseling: Diagnosis, Treatment Family Education/Counseling: Other Comments MDM: patient presented with the above HPI.---GI symptoms and generalized weakness---workup was initiated. patient was found with the above mentioned diagnosis. the following medications were ordered: please refer to order lists of meds and tests obtained by myself Dr. Kong. Patient ED course and VS have been stabilized. Patient has been reassessed in the ED and remained in a stable condition. Pertinent incidental findings were discussed with the patient and/or family. Patient/family voices understanding and is agreeable with plan. Patient has been observed in the ED adequate length of time to insure improvement/stability. Escalation of care considered: Consideration of escalation to observation or admission Potassium was replaced, sepsis protocol initiated. Patient was ADMITTED to the medicine team for further evaluation and treatment of their presentation. All the reports of any imaging studies that were ordered by myself were reviewed by myself. SEPSIS Sepsis Screen Date sepsis recognized/suspect: Feb 19, 2025 Time Sepsis recognized/suspect: 1554 Recent Procedure: No On Antibiotic Therapy: No Respiratory Rate >20: No Heart Rate >90: Yes Temp<36 C (96.8 F) or >38.3 C: No SBP <90 or MAP <65 mmHG: No New Acute Mental Status Change: No Is the patient on CPAP, BIPAP,: No Physician Orders Chest Portable (02/19/25 15:58) Accucheck (02/19/25 15:58) Notify Md If Map <65 Or Bp<90 (02/19/25 15:58) If Map<65 Start Vasopressor (02/19/25 15:58) Sepsis Reassesment After Fluid (02/19/25 16:58) Vital Signs Date Time Temp Pulse Resp B/P (MAP) Pulse Ox O2 Delivery O2 Flow Rate FiO2 02/19/25 20:51 100.4 02/19/25 20:20 100.4 81 14 95/42 (59) 100.4 02/19/25 19:03 91 13 130/49 (76) 93 02/19/25 18:37 84 02/19/25 18:00 99 20 98/54 (69) 93 02/19/25 16:34 99.1 125 19 102/56 (71) 95 99.1 02/19/25 16:34 125 18 95 Room Air 02/19/25 15:57 115 02/19/25 15:55 100.0 111 18 138/86 96 100.0 Laboratory Tests Test 02/19/25 17:05 02/19/25 19:15 Lactic Acid Level 2.4 mmol/L (0.4-2.0) *H 4.1 mmol/L (0.4-2.0) *H White Blood Count 10.8 10^3/uL (4.4-10.8) Departure 1 Departure Time of Disposition: 17:53 Impression: Primary Impression: GI bleed Additional Impressions: Nausea and vomiting Generalized weakness Sepsis Hypokalemia Disposition: ADMITTED INPATIENT Admit to: [facility] Condition: Guarded Discharged With: Self Critical Care Note Critical Care Time?: Yes (45 min-critical care time only) Heart Score Heart Score: Heart Score Response (Comments) Value History N/A 0 EKG N/A 0 Age N/A 0 Risk Factors N/A 0 Troponin N/A 0 Total 0 HANNAH KONG DO Feb 19, 2025 16:19
--- NOTE | 2025-02-19 16:45 | DVH ---
CHEST RADIOGRAPH Indication: sepsis Technique: Single frontal view of the chest was obtained Comparison: XY CHEST PORTABLE on DOS: 02/04/25 FINDINGS: Lines and Tubes: Dual-chamber pacemaker in place with pulse generator over the left chest not signifi cantly changed from 02/04/2025 Lungs: No focal consolidation. Pleura: No effusion. No pneumothorax. Cardiomediastinal contours: Unremarkable Bones: No acute osseous abnormality. IMPRESSION: 1. No acute cardiopulmonary disease.
[2025-02-19] MEDS: LACTATED RINGER'S 2,000 ML IV ONE (16:49)
[2025-02-19] MEDS: ONDANSETRON HCL 4 MG/2 ML VIAL IV ONE (16:50)
[2025-02-19] MEDS: PANTOPRAZOLE 40 MG/10 ML VIAL INJ IV ONE (16:50)
[2025-02-19] MEDS: CEFEPIME 1GM/50ML 50 ML IV ONE (17:19)
[2025-02-19 17:27] LABS: Hematocrit 42.1 % (41.0-53.0); Hemoglobin 14.3 g/dL (13.5-17.5); Mean Corpuscular Hemoglobin 29.4 pg (28.0-32.0); Mean Corpuscular Volume 86.3 fL (80.0-100.0); Nucleated Red Blood Cells % 0.2 %
[2025-02-19 17:42] LABS: Alanine Aminotransferase 39 U/L (7-40); Albumin 4.3 g/dL (3.2-4.8); Alkaline Phosphatase 62 U/L (46-116); Anion Gap 14 (5-15); BUN/Creatinine Ratio 11.9 (10.0-20.0); Bilirubin, Total 0.4 mg/dL (0.2-1.0); Blood Urea Nitrogen 12 mg/dL (9-23); Calcium 10.0 mg/dL (8.7-10.4); Carbon Dioxide 24 mmol/L (20-31); Chloride 94 mmol/L (98-107); Glucose 183 mg/dL (74-106); INR 1.01 (0.9-1.15); Partial Thromboplastin Time 22.1 SEC (24.5-34.5); Potassium 2.9 mmol/L (3.5-5.1); Prothrombin Time 10.7 sec (9.3-11.8); Sodium 132 mmol/L (136-145); Total Protein 8.0 g/dL (5.7-8.2)
[2025-02-19 17:54] LABS: Lactic Acid w/Reflex 2.4 mmol/L (0.4-2.0)
[2025-02-19] MEDS: POTASSIUM CHL 20 Meq TABLET PO ONE (18:45)
[2025-02-19] MEDS: POTASSIUM CHL 20MEQ/100ML 100 ML IV SCH (19:40)
[2025-02-19] MEDS: SODIUM CHLORIDE 0.9% 1,000 ML IV ONE (20:19)
[2025-02-19] MEDS: ACETAMINOPHEN 325 MG TAB PO ONE (20:51)
[2025-02-19 21:00] LABS: Urine Protein, UAD Negative (Negative)
--- NOTE | 2025-02-19 21:15 | DVHHP2 ---
History of Present Illness Reason for Visit: Fever History of Present Illness 74-year-old male presents for evaluation of a fever that started today. Patient reports recently completing an antibiotic regimen for a urinary tract infection a week ago. Today he developed fever. Denies dysuria or hematuria. No abdominal pain, nausea or vomiting. No shortness a breath. No other acute complaints. Past Medical History Hypertension, diabetes mellitus Past Surgical History Denies Family History Noncontributory Smoke: No ALCOHOL: none Drugs: None Lives: with Family Review of Systems Review of Systems Review of systems are currently negative otherwise addressed in HPI. Allergies: Coded Allergies: NO KNOWN ALLERGIES (Unverified , 02/19/25) Medications Current Medications Medications Dose Ordered Sig/Janee Route Start Time Stop Time Status Last Admin Dose Admin Cefepime HCl 50 ml @ 12.5 mls/hr Q8HR IV 02/19/25 22:00 UNV Cefepime HCl 50 ml @ 12.5 mls/hr Q8HR IV 02/19/25 22:00 Potassium Chloride 100 ml @ 50 mls/hr Q2H IV 02/19/25 19:30 02/19/25 23:29 02/19/25 19:40 50 MLS/HR Pantoprazole Sodium 40 mg DAILY IV 02/20/25 10:00 Ondansetron HCl 4 mg Q4HP PRN IV 02/19/25 20:15 Exam Vital Signs Vital Signs Date Time Temp Pulse Resp B/P (MAP) Pulse Ox O2 Delivery O2 Flow Rate FiO2 02/19/25 20:51 100.4 02/19/25 20:20 81 14 95/42 (59) 02/19/25 19:03 93 02/19/25 16:34 Room Air Exam Gen: 74-year-old male in mild distress Skin: Warm, dry, normal color and texture, no rash. HEENT: Normocephalic atraumatic, mucous membranes moist and pink. Neck: Cervical and supraclavicular nodes normal without enlargement, trachea is midline, thyroid gland is normal without masses. Pulmonary: Clear to auscultation and percussion bilaterally. Cardiac: Regular rate and rhythm. No murmur Abdomen: Soft, nontender, nondistended, bowel sounds present all 4 quadrants, no guarding, no rigidity, no organomegaly. Extremities: No cyanosis, clubbing, no edema Neuro: Cranial nerves II through XII grossly intact, normal affect and speech, no focal motor deficits. Labs/Xrays ORDERING PHYSICIAN: HANNAH KONG DO PROCEDURE(s): CXRP - CHEST PORTABLE REASON: sepsis ORDER NUMBER(s): [id number], ACCESSION NUMBER(s): [id number] CHEST RADIOGRAPH Indication: sepsis Technique: Single frontal view of the chest was obtained Comparison: XY CHEST PORTABLE on DOS: 02/04/25 FINDINGS: Lines and Tubes: Dual-chamber pacemaker in place with pulse generator over the left chest not significantly changed from 02/04/2025 Lungs: No focal consolidation. Pleura: No effusion. No pneumothorax. Cardiomediastinal contours: Unremarkable Bones: No acute osseous abnormality. IMPRESSION: 1. No acute cardiopulmonary disease. Labs Test 02/19/25 20:39 02/19/25 19:15 02/19/25 17:05 Range/Units Urine Color Light-yellow Yellow Urine Clarity Turbid H Clear Urine pH 6.5 5.0-9.0 Urine Specific [place] 1.012 1.001-1.035 Urine Protein Negative Negative Urine Ketones Negative Negative Urine Blood Negative Negative /uL Urine Nitrite Negative Negative Urine Bilirubin Negative Negative Urine Urobilinogen Normal Negative mg/dL Urine Leukocyte Esterase 3+ Negative /uL Urine RBC 3 0 - 3 /hpf Urine Microscopic WBC 337 H 0-3 /HPF Urine Squamous Epithelial Cells Few <5 /hpf Urine Bacteria None seen None Seen /hpf Urine Glucose Normal Normal mg/dL Lactic Acid Level 4.1 *H 0.4-2.0 mmol/L White Blood Count 10.8 4.4-10.8 10^3/uL Red Blood Count 4.88 4.5-5.90 10^6/uL Hemoglobin 14.3 13.5-17.5 g/dL Hematocrit 42.1 41.0-53.0 % Mean Corpuscular Volume 86.3 80.0-100.0 fL Mean Corpuscular Hemoglobin 29.4 28.0-32.0 pg Mean Corpuscular Hemoglobin Concent 34.1 32.0-36.0 g/dL Red Cell Distribution Width 16.7 H 11.8-14.3 % Platelet Count 319 140-450 10^3/uL Mean Platelet Volume 6.9 6.9-10.8 fL Neutrophils (%) (Auto) 88.9 H 37.0-80.0 % Lymphocytes (%) (Auto) 6.0 L 10.0-50.0 % Monocytes (%) (Auto) 4.7 0.0-12.0 % Eosinophils (%) (Auto) 0.0 0.0-7.0 % Basophils (%) (Auto) 0.4 0.0-2.0 % Neutrophils # (Auto) 9.6 H 1.6-8.6 10 ^3/uL Lymphocytes # (Auto) 0.6 0.4-5.4 10 ^3/uL Monocytes # (Auto) 0.5 0-1.3 10 ^3/uL Eosinophils # (Auto) 0 0-0.8 10 ^3/uL Basophils # (Auto) 0 0-0.2 10 ^3/uL Nucleated Red Blood Cells 0.2 % Prothrombin Time 10.7 9.3-11.8 sec Prothrombin Time INR 1.01 0.9-1.15 Activated Partial Thromboplast Time 22.1 L 24.5-34.5 SEC Sodium Level 132 L 136-145 mmol/L Potassium Level 2.9 L 3.5-5.1 mmol/L Chloride Level 94 L 98-107 mmol/L Carbon Dioxide Level 24 20-31 mmol/L Anion Gap 14 5-15 Blood Urea Nitrogen 12 9-23 mg/dL Creatinine 1.01 0.700-1.30 mg/dL Glomerular Filtration Rate Calc 77 >90 mL/min BUN/Creatinine Ratio 11.9 10.0-20.0 Serum Glucose 183 H 74-106 mg/dL Calcium Level 10.0 8.7-10.4 mg/dL Total Bilirubin 0.4 0.2-1.0 mg/dL Aspartate Amino Transferase (AST) 25 13-40 U/L Alanine Aminotransferase (ALT) 39 7-40 U/L Alkaline Phosphatase 62 46-116 U/L Total Protein 8.0 5.7-8.2 g/dL Albumin 4.3 3.2-4.8 g/dL SEPSIS Sepsis Screen Date sepsis recognized/suspect: Feb 19, 2025 Time Sepsis recognized/suspect: 1904 Recent Procedure: No On Antibiotic Therapy: Yes Respiratory Rate >20: No Heart Rate >90: Yes Temp<36 C (96.8 F) or >38.3 C: Yes SBP <90 or MAP <65 mmHG: No New Acute Mental Status Change: Yes Is the patient on CPAP, BIPAP,: No Physician Orders Chest Portable (02/19/25 15:58) Accucheck (02/19/25 15:58) Blood Culture (02/19/25 15:58) Notify Md If Map <65 Or Bp<90 (02/19/25 15:58) If Map<65 Start Vasopressor (02/19/25 15:58) Sepsis Reassesment After Fluid (02/19/25 16:58) Cefepime 1gm/50ml (Maxipime 1gm/50ml) (02/19/25 22:00) Potassium Chl 20meq/100ml (02/19/25 19:30) Insert/Manage Urinary Catheter QSHIFT (02/19/25 19:43) Pantoprazole (Protonix) (02/20/25 10:00) Sodium Chloride 0.9% (02/19/25 20:15) Basic Metabolic Panel (02/20/25 04:00) Ondansetron Hcl (Zofran) (02/19/25 20:15) Complete Blood Count (02/20/25 04:00) Condition: Stable (02/19/25 20:06) Bedrest With Bathroom Privileg (02/19/25 20:06) Admit (02/19/25 20:54) Urine Bacterial Culture (02/19/25 21:10) Hydrocodone-Acet 5/325mg Tab ([place] 5/32 (02/19/25 21:15) Acetaminophen Tablet (Tylenol Tablet) (02/19/25 21:15) Cardiac Diet-2gna,Lofat,Lochol (02/20/25 Breakfast) Digoxin Tablet (Lanoxin Tablet) (02/20/25 10:00) Vital Signs Date Time Temp Pulse Resp B/P (MAP) Pulse Ox O2 Delivery O2 Flow Rate FiO2 02/19/25 20:51 100.4 02/19/25 20:20 100.4 81 14 95/42 (59) 100.4 02/19/25 19:03 91 13 130/49 (76) 93 02/19/25 18:37 84 02/19/25 18:00 99 20 98/54 (69) 93 02/19/25 16:34 99.1 125 19 102/56 (71) 95 99.1 02/19/25 16:34 125 18 95 Room Air 02/19/25 15:55 100.0 111 18 138/86 96 100.0 Laboratory Tests Test 02/19/25 17:05 02/19/25 19:15 Lactic Acid Level 2.4 mmol/L (0.4-2.0) *H 4.1 mmol/L (0.4-2.0) *H White Blood Count 10.8 10^3/uL (4.4-10.8) Medications Medications Dose Ordered Sig/Janee Route Start Time Stop Time Status Last Admin Dose Admin Acetaminophen 650 mg ONCE ONCE PO 02/19/25 20:45 02/19/25 20:46 DC 02/19/25 20:51 650 MG Cefepime HCl 50 ml @ 50 mls/hr ONCE ONCE IV 02/19/25 16:30 02/19/25 17:29 DC 02/19/25 17:19 50 MLS/HR Lactated Ringer's 2,000 ml @ 2,000 mls/hr ONCE ONCE IV 02/19/25 16:00 02/19/25 16:59 DC 02/19/25 16:49 2,000 MLS/HR Ondansetron HCl 8 mg ONCE ONCE IV 02/19/25 16:15 02/19/25 16:16 DC 02/19/25 16:50 8 MG Pantoprazole Sodium 40 mg ONCE ONCE IV 02/19/25 16:15 02/19/25 16:16 DC 02/19/25 16:50 40 MG Potassium Chloride 60 meq ONCE ONCE PO 02/19/25 18:00 02/19/25 18:01 DC 02/19/25 18:45 60 MEQ Potassium Chloride 100 ml @ 50 mls/hr Q2H IV 02/19/25 19:30 02/19/25 23:29 02/19/25 19:40 50 MLS/HR Sodium Chloride 1,000 ml @ 100 mls/hr Q10H ONCE IV 02/19/25 20:15 02/20/25 06:14 02/19/25 20:19 100 MLS/HR Assessment/Plan Assessment/Plan Early sepsis Complicated UTI Hypokalemia Hypotension Plan Admit the patient to Med surge to the hospitalist Cefepime Urine bacterial culture pending Resume home medications Continue treatment per orders. Plan discussed with: Patient My Orders Orders - REGULO GILLIAM Procedure Category Date Status Time Pantoprazole PHA 02/20/25 In Process (Protonix) 10:00 Sodium Chloride 0.9% PHA 02/19/25 In Process 20:15 Basic Metabolic Panel LAB 02/20/25 Verified 04:00 Ondansetron Hcl PHA 02/19/25 In Process (Zofran) 20:15 Complete Blood Count LAB 02/20/25 Verified 04:00 Condition: Stable CLAOS 02/19/25 In Process 20:06 Bedrest With Bathroom CALOS 02/19/25 In Process Privileg 20:06 Admit ADMIT 02/19/25 Transmitted 20:54 Urine Bacterial ANNE 02/19/25 Logged Culture 21:10 Hydrocodone-Acet PHA 02/19/25 Verified 5/325mg Tab ([place] 21:15 Acetaminophen Tablet PHA 02/19/25 Verified (Tylenol Tablet) 21:15 Cardiac DIET 02/20/25 Verified Diet-2gna,Lofat,Lochol Breakfast Digoxin Tablet PHA 02/20/25 Verified (Lanoxin Tablet) 10:00 Date of Service: Feb 19, 2025 Billing Provider: REGULO GILLIAM Common Visit Codes: [id number] INP/OBS CARE (HIGH) REGULO GILLIAM Feb 19, 2025 21:15
[2025-02-19 21:20] VITALS: PULSE 72
[2025-02-19] MEDS ORDERED: CEFEPIME 1GM/50ML 50 ML IV SCH (22:00)
[2025-02-19] MEDS: CEFEPIME 1GM/50ML 50 ML IV SCH (22:43)
[2025-02-20 07:22] VITALS: PULSE 75; RESP 20; O2SAT 93
[2025-02-20] MEDS: DIGOXIN 0.125 MG TAB PO SCH (09:41)
[2025-02-20 09:58] LABS: Hematocrit 39.3 % (41.0-53.0); Hemoglobin 13.0 g/dL (13.5-17.5); Mean Corpuscular Hemoglobin 28.8 pg (28.0-32.0); Mean Corpuscular Volume 87.3 fL (80.0-100.0); Nucleated Red Blood Cells % 0.1 %
[2025-02-20] MEDS ORDERED: PANTOPRAZOLE 40 MG/10 ML VIAL INJ IV SCH (10:00)
[2025-02-20 10:12] LABS: Chloride 98 mmol/L (98-107)
[2025-02-20 10:13] LABS: Anion Gap 11 (5-15); Carbon Dioxide 26 mmol/L (20-31)
[2025-02-20 10:18] LABS: BUN/Creatinine Ratio 13.6 (10.0-20.0); Blood Urea Nitrogen 12 mg/dL (9-23)
[2025-02-20 10:24] LABS: Calcium 8.6 mg/dL (8.7-10.4); Glucose 184 mg/dL (74-106); Potassium 3.5 mmol/L (3.5-5.1); Sodium 135 mmol/L (136-145)
--- NOTE | 2025-02-20 13:32 | ECG ---
[facility] Test Date: 2025-02-19 Test Time: 15:57:19 Pat Name: ROLY WOODY Department: [facility] ED Patient ID: [id number] Room: 0289 Gender: M [employer]pper: : [id number] Requested By: HANNAH KONG Order Number: [id number] Reading MD: Pedro Ricardo Measurements Intervals [place] Rate: 115 P: -36 GA: 74 QRS: -41 QRSD: 154 T: 23 QT: 396 QTc: 548 Interpretive Statements Ventricular-paced rhythm No further analysis attempted due to paced rhythm Electronically Signed On 02-27-2025 13:41:40 PDT by Pedro Ricardo Please click the below link to view image of tracing.
--- NOTE | 2025-02-20 14:07 | DVHPN2 ---
Progress Note Date Seen: Feb 20, 2025 Medical Necessity Reason Pt with a Central, PICC or Fol: No Subjective Patient reports: No new complaints Review of Systems: HEENT:Normal, CVS:Normal, RESPIRATORY:Normal, GI:Normal, :Normal, MSK:Normal, NEURO:Normal Objective vital signs Vital Sign Date Time Temp Pulse Resp B/P (MAP) Pulse Ox O2 Delivery O2 Flow Rate FiO2 02/20/25 12:00 81 16 109/60 (76) 97 02/20/25 08:00 98.5 98.5 02/20/25 07:22 Room Air* 0 21 Total Intake and Output 02/19/25 02/19/25 02/20/25 15:00 23:00 07:00 Intake Total 2350 ml 950.0 ml Balance 2350 ml 950.0 ml medications Current Medications Medications Dose Ordered Sig/Janee Route Start Time Stop Time Status Last Admin Dose Admin Cefepime HCl 50 ml @ 12.5 mls/hr Q8HR IV 02/19/25 22:00 UNV Cefepime HCl 50 ml @ 12.5 mls/hr Q8HR IV 02/19/25 22:00 02/20/25 06:14 12.5 MLS/HR Ondansetron HCl 4 mg Q4HP PRN IV 02/19/25 20:15 Acetaminophen/ Hydrocodone Bitart 1 tab Q4HP PRN PO 02/19/25 21:15 Acetaminophen 650 mg Q6HP PRN PO 02/19/25 21:15 Digoxin 0.125 mg DAILY PO 02/20/25 10:00 02/20/25 09:41 0.125 MG Examination: GENERAL:Normal, HEENT:Normal, NECK:Normal, LUNGS:Normal, CVS:Normal, ABDOMEN:Normal, MSK:Normal, SKIN:Normal, NEURO:Normal, :Normal laboratory and microbiology Laboratory Tests 02/20/25 09:40 Test 02/20/25 09:40 Range/Units Serum Glucose 184 H 74-106 mg/dL Problem List/Assessment/Plan Problem List/Assessment/Plan #1 sepsis with uti: culture, iv invanz #2 dm: ssi #3 htn #4 ?bph: usg, flomax #5 ?chronic diastolic heart failure: echo advance care planning- full code- time spent 18 mins Plan discussed with: Patient My Orders My Orders Orders - REGULO KENNY MD Procedure Category Date Status Time Glucose Blood PHA 02/20/25 Verified (Accu-Chek Comfort 17:00 Date of Service: Feb 20, 2025 Billing Provider: REGULO KENNY MD Common Visit Codes: [id number] INP/OBS CARE(HIGH) Secondary Visit Codes: [id number] CARE PLAN 30 MINUTES REGULO KENNY MD Feb 20, 2025 14:07
[2025-02-20] MEDS ORDERED: DEXTROSE (50%) 50ML SYRG IV PRN (14:15)
--- NOTE | 2025-02-20 14:42 | DVH ---
US KIDNEY HISTORY: uti COMPARISON: None TECHNIQUE: Transverse and longitudinal grayscale and color doppler images were obtained of the kidney s and bladder. FINDINGS: Right kidney: Size: 9.7 cm Cortical thickness: Normal Echogenicity: Normal Stones: None Masses: None Hydronephrosis: None Ureters: Not well visualized. Other: None Left kidney: Size: 8.8 cm Cortical thickness: Normal Echogenicity: Normal Stones: None Masses: None Hydronephrosis: None Ureters: Not well visualized. Other: None Bladder: Normal Other: None. IMPRESSION: Unremarkable renal ultrasound.
[2025-02-20] MEDS: SODIUM CHLORIDE 0.9% 1,000 ML IV SCH (15:00)
[2025-02-20] MEDS: ERTAPENEM SOD INJ 1 GM in SODIUM CHL 0.9% 50 ML IV ONE (15:00)
[2025-02-20] MEDS: ACCU-CHEK COMFORT CURVE STRIP VI SCH (17:00)
[2025-02-20] MEDS: InsuLIN REG 1unit/0.01ml Soln (100units/ml) SC SCH (17:01)
[2025-02-20] MEDS: TAMSULOSIN HYDROCHLORIDE 0.4 MG CAP PO SCH (18:16)
[2025-02-20 19:30] VITALS: PULSE 72; O2SAT 98
[2025-02-20 21:25] VITALS: PULSE 72
[2025-02-20 22:09] VITALS: BP 107/63; PULSE 108; RESP 18; TEMP 99.9; O2SAT 95
[2025-02-20 23:04] VITALS: BP 107/63; PULSE 108; RESP 17; TEMP 99.9; O2SAT 94
[2025-02-20] MEDS: ACETAMINOPHEN 325 MG TAB PO PRN (23:19)
[2025-02-21] VITALS (8 sets, daily range): BP systolic 101–122; BP diastolic 58–72; PULSE 63–105; RESP 17–19; TEMP 98–98.9; O2SAT 93–99
[2025-02-21 07:28] LABS: Hematocrit 38.1 % (41.0-53.0); Hemoglobin 12.8 g/dL (13.5-17.5); Mean Corpuscular Hemoglobin 28.9 pg (28.0-32.0); Mean Corpuscular Volume 86.1 fL (80.0-100.0); Nucleated Red Blood Cells % 0.3 %
[2025-02-21 07:36] LABS: Anion Gap 12 (5-15); Carbon Dioxide 25 mmol/L (20-31)
[2025-02-21 07:37] LABS: Calcium 9.0 mg/dL (8.7-10.4)
[2025-02-21 07:40] LABS: Chloride 96 mmol/L (98-107); Potassium 2.9 mmol/L (3.5-5.1); Sodium 133 mmol/L (136-145)
[2025-02-21 07:42] LABS: BUN/Creatinine Ratio 9.9 (10.0-20.0)
[2025-02-21 07:45] LABS: Blood Urea Nitrogen 8 mg/dL (9-23); Glucose 169 mg/dL (74-106)
[2025-02-21] MEDS: POTASSIUM CHL 20 Meq TABLET PO ONE ×2 (10:08→17:34)
--- NOTE | 2025-02-21 12:00 | DVHPN2 ---
Progress Note Date Seen: Feb 21, 2025 Medical Necessity Reason Pt with a Central, PICC or Fol: No Subjective Patient reports: No new complaints Review of Systems: HEENT:Normal, CVS:Normal, RESPIRATORY:Normal, GI:Normal, :Normal, MSK:Normal, NEURO:Normal Objective vital signs Vital Sign Date Time Temp Pulse Resp B/P (MAP) Pulse Ox O2 Delivery O2 Flow Rate FiO2 02/21/25 10:10 66 02/21/25 09:00 98.1 18 118/65 (82) 99 98.1 02/21/25 08:00 Room Air* 0 21 Total Intake and Output 02/20/25 02/20/25 02/21/25 15:00 23:00 07:00 Intake Total 50 ml 275 ml 50 ml Output Total 250 ml 200 ml 100 ml Balance -200 ml 75 ml -50 ml medications Current Medications Medications Dose Ordered Sig/Janee Route Start Time Stop Time Status Last Admin Dose Admin Cefepime HCl 50 ml @ 12.5 mls/hr Q8HR IV 02/19/25 22:00 UNV Ondansetron HCl 4 mg Q4HP PRN IV 02/19/25 20:15 Acetaminophen/ Hydrocodone Bitart 1 tab Q4HP PRN PO 02/19/25 21:15 Acetaminophen 650 mg Q6HP PRN PO 02/19/25 21:15 02/20/25 23:19 650 MG Digoxin 0.125 mg DAILY PO 02/20/25 10:00 02/21/25 10:10 0.125 MG Diagnostic Test (Pha) 1 strip ACHS 02/20/25 17:00 02/21/25 06:32 1 STRIP Insulin Human Regular ACHS SC 02/20/25 17:00 02/21/25 06:34 3 UNITS Dextrose 50 ml UD PRN IV 02/20/25 14:15 Ertapenem 1 gm/ Sodium Chloride 50 ml @ 100 mls/hr DAILY IV 02/21/25 10:00 Tamsulosin HCl 0.4 mg QPM PO 02/20/25 18:00 02/20/25 18:16 0.4 MG Sodium Chloride 1,000 ml @ 75 mls/hr [id number] IV 02/20/25 14:15 02/20/25 15:00 75 MLS/HR Examination: GENERAL:Normal, HEENT:Normal, NECK:Normal, LUNGS:Normal, CVS:Normal, ABDOMEN:Normal, MSK:Normal, SKIN:Normal, NEURO:Normal, :Normal laboratory and microbiology Laboratory Tests 02/21/25 06:44 Test 02/21/25 06:44 Range/Units Serum Glucose 169 H 74-106 mg/dL Microbiology Date/Time Source Procedure Growth Status 02/19/25 17:05 Blood Blood Culture - Preliminary NO GROWTH AFTER 24 HOURS OF INCUBATION. Resulted Problem List/Assessment/Plan Problem List/Assessment/Plan #1 sepsis with uti: culture, iv invanz #2 dm: ssi #3 htn #4 ?bph: usg, flomax #5 ?chronic diastolic heart failure: echo #6 pacer advance care planning- full code- time spent 18 mins Plan discussed with: Patient, Daughter My Orders My Orders Orders - REGULO KENNY MD Procedure Category Date Status Time Glucose Blood PHA 02/20/25 In Process (Accu-Chek Comfort 17:00 Insulin R (Human) PHA 02/20/25 In Process (Insulin R) 17:00 Dextrose 50% Syringe PHA 02/20/25 In Process 14:15 Ertapenem Sod Inj PHA 02/21/25 In Process (Invanz) 10:00 Kidney US 02/20/25 Resulted 14:01 Tamsulosin PHA 02/20/25 In Process Hydrochloride (Flomax) 18:00 Sodium Chloride 0.9% PHA 02/20/25 In Process 14:15 Echo 2d Mode Cardiac US 02/21/25 Logged DOP 14:06 Pt Request For Service PT 02/21/25 Verified 11:58 Basic Metabolic Panel LAB 02/22/25 Verified 06:00 Complete Blood Count LAB 02/22/25 Verified 06:00 Magnesium LAB 02/22/25 Verified 05:00 Date of Service: Feb 21, 2025 Billing Provider: REGULO KENNY MD Common Visit Codes: [id number] INP/OBS CARE(HIGH) Secondary Visit Codes: [id number] CARE PLAN 30 MINUTES REGULO KENNY MD Feb 21, 2025 12:00
[2025-02-21] MEDS: ERTAPENEM SOD INJ 1 GM in SODIUM CHL 0.9% 50 ML IV SCH (12:16)
--- NOTE | 2025-02-21 15:38 | DVHSR ---
APPROVED REPORT EXAM: Two-dimensional and M-mode echocardiogram with Doppler and color Doppler. Blood Pressure: 106/58 mmHg INDICATION Heart Failure RISK FACTORS Height: 5'10", Weight: 195 DIMENSIONS LVDd4.4 (3.8-5.7cm)LA (2D)3.5 (1.9-4.0cm)Aortic Root3.4 (2.0-3.7cm) LVDs2.9 (2.5-4.0cm)LA (MM) (1.9-4.0cm)Aortic Cusp Exc2.0 (1.5-2.0cm) EF (%) 62.0 (55-70%)Rt. Atrium (1.9-4.0cm)Asc. Aorta3.5 cm IVSd1.5 (0.7-1.1cm)RV (D) (1.8-2.4cm) PWd1.1 (0.7-1.1cm) Mitral Valve MitralMitral Stenosis E wave0.49m/sMV Mean GR.mmHg A wave0.66m/sMV Peak GR.mmHg E/A ratio0.72D MVAcm2 DECEL [id number] 1/2 Timems Aortic Valve Aortic ValveAortic Stenosis V10.85m/A[place]il[place] Mean GR.6mmHg V21.44m/A[place]il[place] Peak GR.8mmHg LVOT Diameter2.3 (1.8-2.4cm)Doppler AVA2.45cm2 Pulmonic Valve V20.94m/s Other Information Quality : Technically LimitedRhythm : Technically limited study due to body habitus. Conclusion lvef 40% mild LVH left atrium enlarged moderate aortic sclerosis
[2025-02-22] VITALS (9 sets, daily range): BP systolic 109–130; BP diastolic 56–66; PULSE 65–86; RESP 16–19; TEMP 97.1–98.4; O2SAT 93–96
[2025-02-22 06:21] LABS: Hematocrit 32.8 % (41.0-53.0); Hemoglobin 11.2 g/dL (13.5-17.5); Mean Corpuscular Hemoglobin 29.1 pg (28.0-32.0); Mean Corpuscular Volume 85.1 fL (80.0-100.0); Nucleated Red Blood Cells % 0.1 %
[2025-02-22 06:37] LABS: Chloride 99 mmol/L (98-107)
[2025-02-22 06:38] LABS: Anion Gap 11 (5-15); Carbon Dioxide 23 mmol/L (20-31)
[2025-02-22 06:44] LABS: BUN/Creatinine Ratio 11.0 (10.0-20.0); Magnesium 1.6 mg/dL (1.6-2.6)
[2025-02-22 06:50] LABS: Blood Urea Nitrogen 8 mg/dL (9-23); Calcium 8.6 mg/dL (8.7-10.4); Glucose 165 mg/dL (74-106); Potassium 3.4 mmol/L (3.5-5.1); Sodium 133 mmol/L (136-145)
--- NOTE | 2025-02-22 12:18 | DVHPN2 ---
Progress Note Date Seen: Feb 22, 2025 Medical Necessity Reason Pt with a Central, PICC or Fol: No Subjective Patient reports: No new complaints Review of Systems: HEENT:Normal, CVS:Normal, RESPIRATORY:Normal, GI:Normal, :Normal, MSK:Normal, NEURO:Normal Objective vital signs Vital Sign Date Time Temp Pulse Resp B/P (MAP) Pulse Ox O2 Delivery O2 Flow Rate FiO2 02/22/25 09:34 76 02/22/25 09:00 97.1 18 116/63 (80) 93 97.1 02/22/25 08:00 Room Air* 0 21 Total Intake and Output 02/21/25 02/21/25 02/22/25 15:00 23:00 07:00 Intake Total 50 ml 815 ml 300 ml Output Total 850 ml 600 ml Balance 50 ml -35 ml -300 ml medications Current Medications Medications Dose Ordered Sig/Janee Route Start Time Stop Time Status Last Admin Dose Admin Cefepime HCl 50 ml @ 12.5 mls/hr Q8HR IV 02/19/25 22:00 UNV Ondansetron HCl 4 mg Q4HP PRN IV 02/19/25 20:15 Acetaminophen/ Hydrocodone Bitart 1 tab Q4HP PRN PO 02/19/25 21:15 Acetaminophen 650 mg Q6HP PRN PO 02/19/25 21:15 02/20/25 23:19 650 MG Digoxin 0.125 mg DAILY PO 02/20/25 10:00 02/22/25 09:34 0.125 MG Diagnostic Test (Pha) 1 strip ACHS 02/20/25 17:00 02/22/25 11:09 1 STRIP Insulin Human Regular ACHS SC 02/20/25 17:00 02/22/25 11:14 4 UNITS Dextrose 50 ml UD PRN IV 02/20/25 14:15 Ertapenem 1 gm/ Sodium Chloride 50 ml @ 100 mls/hr DAILY IV 02/21/25 10:00 02/22/25 09:34 100 MLS/HR Tamsulosin HCl 0.4 mg QPM PO 02/20/25 18:00 02/21/25 17:34 0.4 MG Sodium Chloride 1,000 ml @ 75 mls/hr [id number] IV 02/20/25 14:15 02/22/25 06:13 75 MLS/HR Examination: GENERAL:Normal, HEENT:Normal, NECK:Normal, LUNGS:Normal, CVS:Normal, ABDOMEN:Normal, MSK:Normal, SKIN:Normal, NEURO:Normal, :Normal laboratory and microbiology Laboratory Tests 02/22/25 05:06 Test 02/22/25 05:06 Range/Units Serum Glucose 165 H 74-106 mg/dL Microbiology Date/Time Source Procedure Growth Status 02/21/25 05:45 Nose MRSA Screen - Final Complete 02/19/25 20:39 Voided Urine Urine Culture - Preliminary Resulted 02/19/25 17:05 Blood Blood Culture - Preliminary NO GROWTH AFTER 48 HOURS OF INCUBATION. Resulted Problem List/Assessment/Plan Problem List/Assessment/Plan #1 sepsis with uti: culture, iv invanz #2 dm: ssi #3 htn #4 ?bph: usg, flomax #5 ?chronic diastolic heart failure: echo #6 pacer advance care planning- full code- time spent 18 mins Plan discussed with: Patient, Daughter My Orders My Orders Orders - REGULO KENNY MD Procedure Category Date Status Time Initiate Vte CALOS 02/21/25 In Process Prophylaxis 20:56 Phenazopyridine Hcl PHA 02/22/25 Verified Tablet (Pyridium Tab 12:15 Phenazopyridine Hcl PHA 02/22/25 Verified Tablet (Pyridium Tab 22:00 Potassium Er Tablet PHA 02/22/25 Verified (Klor-Con Tablet) 12:15 Urinalysis LAB 02/22/25 Uncollected 12:10 Basic Metabolic Panel LAB 02/23/25 Verified 06:00 Magnesium Christian PHA 02/22/25 Verified 13:00 Date of Service: Feb 22, 2025 Billing Provider: REGULO KENNY MD Common Visit Codes: [id number] INP/OBS CARE(HIGH) REGULO KENNY MD Feb 22, 2025 12:18
[2025-02-22] MEDS: PHENAZOPYRIDINE HCL 100 MG TAB PO ONE (13:39)
[2025-02-22] MEDS: POTASSIUM CHL 20 Meq TABLET PO ONE (13:39)
[2025-02-22] MEDS: MAGNESIUM SULFATE 1GM/100ML 100 ML IV SCH (13:40)
[2025-02-22 16:25] LABS: Urine Protein, UAD Negative (Negative); Urine WBC Clumps PRESENT /hpf (None Seen)
[2025-02-22] MEDS: PHENAZOPYRIDINE HCL 100 MG TAB PO SCH (22:10)
[2025-02-22] MEDS: SUCRALFATE 1 GM TAB PO SCH (22:10)
[2025-02-23] VITALS (8 sets, daily range): BP systolic 109–173; BP diastolic 57–96; PULSE 62–88; RESP 16–18; TEMP 98–99.1; O2SAT 90–100
[2025-02-23] MEDS: HYDROcodone-ACET 5/325MG TAB PO PRN (01:31)
[2025-02-23 07:16] LABS: Chloride 101 mmol/L (98-107); Potassium 4.1 mmol/L (3.5-5.1)
[2025-02-23 07:17] LABS: Anion Gap 10 (5-15); Carbon Dioxide 23 mmol/L (20-31)
[2025-02-23 07:22] LABS: BUN/Creatinine Ratio 8.3 (10.0-20.0)
[2025-02-23 07:35] LABS: Blood Urea Nitrogen 7 mg/dL (9-23); Calcium 8.7 mg/dL (8.7-10.4); Glucose 180 mg/dL (74-106); Sodium 134 mmol/L (136-145)
--- NOTE | 2025-02-23 14:10 | DVHPN2 ---
Progress Note Date Seen: Feb 23, 2025 Medical Necessity Reason Pt with a Central, PICC or Fol: No Subjective Patient reports: No new complaints Review of Systems: HEENT:Normal, CVS:Normal, RESPIRATORY:Normal, GI:Normal, :Normal, MSK:Normal, NEURO:Normal Objective vital signs Vital Sign Date Time Temp Pulse Resp B/P (MAP) Pulse Ox O2 Delivery O2 Flow Rate FiO2 02/23/25 10:01 65 02/23/25 08:32 98.5 16 109/68 (82) 97 98.5 02/23/25 08:00 Room Air* 0 21 Total Intake and Output 02/22/25 02/22/25 02/23/25 15:00 23:00 07:00 Intake Total 1190 ml 450 ml Output Total 700 ml 1000 ml Balance 490 ml -550 ml medications Current Medications Medications Dose Ordered Sig/Janee Route Start Time Stop Time Status Last Admin Dose Admin Cefepime HCl 50 ml @ 12.5 mls/hr Q8HR IV 02/19/25 22:00 UNV Ondansetron HCl 4 mg Q4HP PRN IV 02/19/25 20:15 Acetaminophen/ Hydrocodone Bitart 1 tab Q4HP PRN PO 02/19/25 21:15 02/23/25 01:31 1 TAB Acetaminophen 650 mg Q6HP PRN PO 02/19/25 21:15 02/23/25 10:06 650 MG Digoxin 0.125 mg DAILY PO 02/20/25 10:00 02/23/25 10:01 0.125 MG Diagnostic Test (Pha) 1 strip ACHS 02/20/25 17:00 02/23/25 11:44 1 STRIP Insulin Human Regular ACHS SC 02/20/25 17:00 02/23/25 11:52 4 UNITS Dextrose 50 ml UD PRN IV 02/20/25 14:15 Ertapenem 1 gm/ Sodium Chloride 50 ml @ 100 mls/hr DAILY IV 02/21/25 10:00 02/23/25 12:21 100 MLS/HR Tamsulosin HCl 0.4 mg QPM PO 02/20/25 18:00 02/22/25 17:20 0.4 MG Phenazopyridine HCl 100 mg BID PO 02/22/25 22:00 02/23/25 10:00 100 MG Sucralfate 1 gm BID PO 02/22/25 22:00 02/23/25 10:01 1 GM Examination: GENERAL:Normal, HEENT:Normal, NECK:Normal, LUNGS:Normal, CVS:Normal, ABDOMEN:Normal, MSK:Normal, SKIN:Normal, NEURO:Normal, :Normal laboratory and microbiology Laboratory Tests 02/23/25 06:14 02/22/25 05:06 Test 02/23/25 06:14 Range/Units Serum Glucose 180 H 74-106 mg/dL Microbiology Date/Time Source Procedure Growth Status 02/21/25 05:45 Nose MRSA Screen - Final Complete 02/19/25 20:39 Voided Urine Urine Culture - Final Complete 02/19/25 17:05 Blood Blood Culture - Preliminary NO GROWTH AFTER 72 HOURS OF INCUBATION. Resulted Problem List/Assessment/Plan Problem List/Assessment/Plan #1 sepsis with uti: culture, iv invanz #2 dm: ssi #3 htn #4 likely bph: do catheter, flomax, finasteride #5 ?chronic diastolic heart failure: echo #6 pacer explained to family/son in detail plan of care advance care planning- full code- time spent 18 mins Plan discussed with: Patient, Daughter, Son My Orders My Orders Orders - REGULO KENNY MD Procedure Category Date Status Time Sucralfate Tab PHA 02/22/25 In Process (Carafate Tab) 22:00 Finasteride Tablet PHA 02/23/25 Verified (Proscar Tablet) 14:00 Finasteride Tablet PHA 02/24/25 Verified (Proscar Tablet) 10:00 Insert/Manage Urinary CALOS 02/23/25 Verified Catheter 13:56 * Urology Consult CONS 02/23/25 Verified 13:56 Urine Bacterial ANNE 02/23/25 Verified Culture 13:56 Date of Service: Feb 23, 2025 Billing Provider: REGULO KENNY MD Common Visit Codes: [id number] INP/OBS CARE(HIGH) REGULO KENNY MD Feb 23, 2025 14:10
[2025-02-23] MEDS: LIDOCAINE 2% JELLY 11ml (GLYDO) UR ONE (17:50)
[2025-02-23] MEDS: FINASTERIDE 5 MG TAB PO ONE (17:50)
[2025-02-24] VITALS (8 sets, daily range): BP systolic 109–131; BP diastolic 62–79; PULSE 67–94; RESP 16–22; TEMP 98–98.8; O2SAT 92–98
[2025-02-24] MEDS: FINASTERIDE 5 MG TAB PO SCH (10:15)
[2025-02-24] MEDS ORDERED: Ensure HIGH Protein Chocolate 8oz Bottle PO SCH (12:00)
[2025-02-24] MEDS: Glucerna Carbsteady SHAKE Stawberry 8oz PO SCH (12:44)
--- NOTE | 2025-02-24 15:36 | DVHPN2 ---
Subjective I am assuming care of the patient from today onwards who was under the care of the hospitalist team today sign out obtained. Currently patient is being treated for UTI with IV antibiotics and wants, urine culture is pending. Patient and daughter was updated at bedside in the presence of bedside RN Alanis Nascimento. Changes from previous H/P or p: No Changes Objective Vitals Vital Signs Date Time Temp Pulse Resp B/P (MAP) Pulse Ox O2 Delivery O2 Flow Rate FiO2 02/24/25 12:20 80 18 109/62 (78) 92 02/24/25 09:00 98.8 98.8 02/24/25 08:00 Room Air* 0 21 Intake/Output Intake and Output 02/24/25 07:00 Intake Total 700 ml Output Total 1775 ml Balance -1075 ml Intake Oral 700 ml Output Urine Total 1775 ml Medications Current Medications Medications Dose Ordered Sig/Janee Route Start Time Stop Time Status Last Admin Dose Admin Cefepime HCl 50 ml @ 12.5 mls/hr Q8HR IV 02/19/25 22:00 UNV Ondansetron HCl 4 mg Q4HP PRN IV 02/19/25 20:15 Acetaminophen/ Hydrocodone Bitart 1 tab Q4HP PRN PO 02/19/25 21:15 02/23/25 01:31 1 TAB Acetaminophen 650 mg Q6HP PRN PO 02/19/25 21:15 02/24/25 10:14 650 MG Digoxin 0.125 mg DAILY PO 02/20/25 10:00 02/24/25 10:15 0.125 MG Diagnostic Test (Pha) 1 strip ACHS 02/20/25 17:00 02/24/25 11:56 1 STRIP Insulin Human Regular ACHS SC 02/20/25 17:00 02/24/25 11:57 4 UNITS Dextrose 50 ml UD PRN IV 02/20/25 14:15 Ertapenem 1 gm/ Sodium Chloride 50 ml @ 100 mls/hr DAILY IV 02/21/25 10:00 02/24/25 10:18 100 MLS/HR Tamsulosin HCl 0.4 mg QPM PO 02/20/25 18:00 02/23/25 17:55 0.4 MG Phenazopyridine HCl 100 mg BID PO 02/22/25 22:00 02/24/25 10:15 100 MG Sucralfate 1 gm BID PO 02/22/25 22:00 02/24/25 10:15 1 GM Finasteride 5 mg DAILY PO 02/24/25 10:00 02/24/25 10:15 5 MG Enteral Nutritional Formula 240 ml TIDWM PO 02/24/25 12:00 02/24/25 12:44 240 ML Laboratory Results Laboratory Tests 02/22/25 05:06 02/23/25 06:14 Urinalysis Test 02/22/25 15:30 Urine Color Light-yellow (Yellow) Urine Clarity Turbid (Clear) H Urine pH 7.0 (5.0-9.0) Urine Specific [place] 1.007 (1.001-1.035) Urine Protein Negative (Negative) Urine Ketones Negative (Negative) Urine Blood Negative /uL (Negative) Urine Nitrite Negative (Negative) Urine Bilirubin Negative (Negative) Urine Urobilinogen Normal mg/dL (Negative) Urine Leukocyte Esterase 3+ /uL (Negative) Urine RBC 2 /hpf (0 - 3) Urine WBC Clumps Present /hpf (None Seen) Urine Microscopic WBC 204 /HPF (0-3) H Urine Squamous Epithelial Cells Few /hpf (<5) Urine Bacteria None seen /hpf (None Seen) Urine Glucose Trace mg/dL (Normal) Microbiology Microbiology Date/Time Source Procedure Growth Status 02/22/25 15:30 Urine - [place] Urine Culture - Preliminary Resulted 02/21/25 05:45 Nose MRSA Screen - Final Complete 02/19/25 17:05 Blood Blood Culture - Preliminary NO GROWTH AFTER 72 HOURS OF INCUBATION. Resulted Assessment/Plan Assessment/Plan 74-year-old male with a known history of diabetes mellitus type 2, hypertension, dyslipidemia, BPH, chronic congestive heart failure with systolic dysfunction with EF of 40%, status post pacemaker presented to the hospital with generalized weakness found to have 1. Sepsis currently to urinary tract infection 2. Urinary tract infection follow up urine culture 3. Hyperglycemia in the setting of diabetes mellitus type 2 4. Hypertension 5. BPH 6. Congestive heart failure with systolic dysfunction with EF of 40%, currently compensated -continue IV antibiotics, follow up urine culture, physical therapy evaluation and treatment. As per patient's bedside RN patient is max assist. Plan discussed with: Daughter, Other Date of Service: Feb 24, 2025 Billing Provider: GALLITO MYLES MD Common Visit Codes: [id number] INP/OBS CARE(HIGH) GALLITO MLYES MD Feb 24, 2025 15:36
[2025-02-25] VITALS (7 sets, daily range): BP systolic 121–148; BP diastolic 64–77; PULSE 56–61; RESP 15–17; TEMP 97.1–98.3; O2SAT 94–99
--- NOTE | 2025-02-25 18:06 | DVHPN2 ---
Subjective Patient urine culture shows [place] with [id number], patient asymptomatic so we will treated, Invanz has been started. Family was updated. Patient may need midline for seven days' course of antifungal. Changes from previous H/P or p: No Changes Objective Vitals Vital Signs Date Time Temp Pulse Resp B/P (MAP) Pulse Ox O2 Delivery O2 Flow Rate FiO2 02/25/25 17:00 97.8 56 17 139/77 (97) 96 97.8 02/24/25 20:00 Room Air* 0 21 Intake/Output Intake and Output 02/25/25 07:00 Intake Total 1540 ml Output Total 400 ml Balance 1140 ml Intake Oral 1540 ml Output Urine Total 400 ml # Voids 4 Medications Current Medications Medications Dose Ordered Sig/Janee Route Start Time Stop Time Status Last Admin Dose Admin Cefepime HCl 50 ml @ 12.5 mls/hr Q8HR IV 02/19/25 22:00 UNV Ondansetron HCl 4 mg Q4HP PRN IV 02/19/25 20:15 Acetaminophen/ Hydrocodone Bitart 1 tab Q4HP PRN PO 02/19/25 21:15 02/23/25 01:31 1 TAB Acetaminophen 650 mg Q6HP PRN PO 02/19/25 21:15 02/24/25 20:52 650 MG Digoxin 0.125 mg DAILY PO 02/20/25 10:00 02/25/25 09:25 0.125 MG Diagnostic Test (Pha) 1 strip ACHS 02/20/25 17:00 02/25/25 17:41 1 STRIP Insulin Human Regular ACHS SC 02/20/25 17:00 02/25/25 17:50 6 UNITS Dextrose 50 ml UD PRN IV 02/20/25 14:15 Ertapenem 1 gm/ Sodium Chloride 50 ml @ 100 mls/hr DAILY IV 02/21/25 10:00 02/25/25 09:38 100 MLS/HR Tamsulosin HCl 0.4 mg QPM PO 02/20/25 18:00 02/25/25 17:50 0.4 MG Phenazopyridine HCl 100 mg BID PO 02/22/25 22:00 02/25/25 09:21 100 MG Sucralfate 1 gm BID PO 02/22/25 22:00 02/25/25 09:25 1 GM Finasteride 5 mg DAILY PO 02/24/25 10:00 02/25/25 09:21 5 MG Enteral Nutritional Formula 240 ml TIDWM PO 02/24/25 12:00 02/25/25 09:27 240 ML Micafungin Sodium 100 mg/Sodium Chloride 100 ml @ 100 mls/hr DAILY IV 02/26/25 10:00 Laboratory Results Laboratory Tests 02/22/25 05:06 02/23/25 06:14 Urinalysis Test 02/22/25 15:30 Urine Color Light-yellow (Yellow) Urine Clarity Turbid (Clear) H Urine pH 7.0 (5.0-9.0) Urine Specific [place] 1.007 (1.001-1.035) Urine Protein Negative (Negative) Urine Ketones Negative (Negative) Urine Blood Negative /uL (Negative) Urine Nitrite Negative (Negative) Urine Bilirubin Negative (Negative) Urine Urobilinogen Normal mg/dL (Negative) Urine Leukocyte Esterase 3+ /uL (Negative) Urine RBC 2 /hpf (0 - 3) Urine WBC Clumps Present /hpf (None Seen) Urine Microscopic WBC 204 /HPF (0-3) H Urine Squamous Epithelial Cells Few /hpf (<5) Urine Bacteria None seen /hpf (None Seen) Urine Glucose Trace mg/dL (Normal) Microbiology Microbiology Date/Time Source Procedure Growth Status 02/22/25 15:30 Urine - [place] Urine Culture - Preliminary Resulted 02/21/25 05:45 Nose MRSA Screen - Final Complete 02/19/25 17:05 Blood Blood Culture - Final NO GROWTH AFTER 5 DAYS OF INCUBATION. Complete Assessment/Plan Assessment/Plan 74-year-old male with a known history of diabetes mellitus type 2, hypertension, dyslipidemia, BPH, chronic congestive heart failure with systolic dysfunction with EF of 40%, status post pacemaker presented to the hospital with generalized weakness found to have 1. Sepsis currently to urinary tract infection 2. Fungal urinary tract infection 3. Hyperglycemia in the setting of diabetes mellitus type 2 4. Hypertension 5. BPH - start micafungin because of QT prolongation physical therapy evaluation and treatment -both son and daughter was updated at bedside all the questions were answered Plan discussed with: Daughter, Son My Orders Orders - GALLITO MYLES MD Procedure Category Date Status Time Electrocardigram EKG 02/25/25 Logged 15:55 Micafungin Sodium PHA 02/26/25 In Process (Mycamine) 10:00 Micafungin Sodium PHA 02/25/25 In Process (Mycamine) 17:15 Date of Service: Feb 25, 2025 Billing Provider: GALLITO MYLES MD Common Visit Codes: [id number] INP/OBS CARE(HIGH) GALLITO MYLES MD Feb 25, 2025 18:06
[2025-02-25] MEDS: MICAFUNGIN SODIUM 100 MG in SODIUM CHL 0.9% 100 ML IV ONE (18:49)
[2025-02-26] VITALS (8 sets, daily range): BP systolic 121–162; BP diastolic 59–83; PULSE 60–80; RESP 17–19; TEMP 97.3–98.7; O2SAT 95–98
[2025-02-26 08:54] LABS: Alanine Aminotransferase 23 U/L (7-40); Albumin 3.4 g/dL (3.2-4.8); Alkaline Phosphatase 60 U/L (46-116); Anion Gap 8 (5-15); BUN/Creatinine Ratio 14.1 (10.0-20.0); Bilirubin, Total 0.5 mg/dL (0.2-1.0); Blood Urea Nitrogen 11 mg/dL (9-23); Calcium 8.8 mg/dL (8.7-10.4); Carbon Dioxide 26 mmol/L (20-31); Chloride 105 mmol/L (98-107); Magnesium 1.9 mg/dL (1.6-2.6); Potassium 3.5 mmol/L (3.5-5.1); Sodium 139 mmol/L (136-145); Total Protein 6.4 g/dL (5.7-8.2)
[2025-02-26 08:58] LABS: Glucose 211 mg/dL (74-106)
[2025-02-26 09:04] LABS: Hematocrit 32.9 % (41.0-53.0); Hemoglobin 11.1 g/dL (13.5-17.5); Mean Corpuscular Hemoglobin 28.9 pg (28.0-32.0); Mean Corpuscular Volume 85.6 fL (80.0-100.0); Nucleated Red Blood Cells % 0.1 %
[2025-02-26] MEDS: MICAFUNGIN SODIUM 100 MG in SODIUM CHL 0.9% 100 ML IV SCH (09:48)
--- NOTE | 2025-02-26 10:01 | ECG ---
[facility] Test Date: 2025-02-25 Test Time: 16:13:40 Pat Name: ROLY WOODY Department: Room: 0289 A Gender: M Customer Complaint Service Supervisor: ANNITA : 1950 Requested By: GALLITO MYLES Order Number: [id number] Reading MD: Pedro Ricardo Measurements Intervals [place] Rate: 60 P: 0 OK: 165 QRS: -45 QRSD: 314 T: -40 QT: 549 QTc: 549 Interpretive Statements Atrial-ventricular dual-paced rhythm No further analysis attempted due to paced rhythm Baseline wander in lead(s) I,II,aVR Electronically Signed On 02-27-2025 15:29:29 PDT by Pedro Ricardo Please click the below link to view image of tracing.
[2025-02-26] MEDS: ERTAPENEM SOD INJ 1 GM in SODIUM CHL 0.9% 50 ML IV SCH (11:29)
[2025-02-26] MEDS: CHLORTHALIDONE 25 MG TAB PO ONE (16:02)
--- NOTE | 2025-02-26 16:14 | DVHPN2 ---
Subjective Patient urine culture shows Cata [place] with [address]7030 quality, as patient is symptomatic with burning feeling while he is being, we will treat. We will discontinue in was Family was updated. Patient may need midline for seven days' course of antifungal. Changes from previous H/P or p: No Changes Objective Vitals Vital Signs Date Time Temp Pulse Resp B/P (MAP) Pulse Ox O2 Delivery O2 Flow Rate FiO2 02/26/25 13:00 97.4 74 18 141/79 (99) 97 97.4 02/26/25 08:00 Room Air* 0 21 Intake/Output Intake and Output 02/26/25 07:00 Intake Total 2030 ml Output Total 1950 ml Balance 80 ml Intake Oral 1980 ml IV Total 50 ml Output Urine Total 1950 ml # Bowel Movements 2 Medications Current Medications Medications Dose Ordered Sig/Janee Route Start Time Stop Time Status Last Admin Dose Admin Cefepime HCl 50 ml @ 12.5 mls/hr Q8HR IV 02/19/25 22:00 UNV Ondansetron HCl 4 mg Q4HP PRN IV 02/19/25 20:15 Acetaminophen/ Hydrocodone Bitart 1 tab Q4HP PRN PO 02/19/25 21:15 02/23/25 01:31 1 TAB Acetaminophen 650 mg Q6HP PRN PO 02/19/25 21:15 02/25/25 20:53 650 MG Digoxin 0.125 mg DAILY PO 02/20/25 10:00 02/26/25 09:35 0.125 MG Diagnostic Test (Pha) 1 strip ACHS 02/20/25 17:00 02/26/25 11:41 1 STRIP Insulin Human Regular ACHS SC 02/20/25 17:00 02/26/25 11:41 4 UNITS Dextrose 50 ml UD PRN IV 02/20/25 14:15 Tamsulosin HCl 0.4 mg QPM PO 02/20/25 18:00 02/25/25 17:50 0.4 MG Phenazopyridine HCl 100 mg BID PO 02/22/25 22:00 02/26/25 09:36 100 MG Sucralfate 1 gm BID PO 02/22/25 22:00 02/26/25 09:34 1 GM Finasteride 5 mg DAILY PO 02/24/25 10:00 02/26/25 09:36 5 MG Enteral Nutritional Formula 240 ml TIDWM PO 02/24/25 12:00 02/26/25 12:00 240 ML Micafungin Sodium 100 mg/Sodium Chloride 100 ml @ 100 mls/hr DAILY IV 02/26/25 10:00 02/26/25 09:48 100 MLS/HR Ertapenem 1 gm/ Sodium Chloride 50 ml @ 100 mls/hr DAILY@1100 IV 02/26/25 11:00 02/26/25 11:29 100 MLS/HR Chlorthalidone 25 mg DAILY PO 02/27/25 10:00 Laboratory Results Laboratory Tests 02/26/25 08:21 Chemistry Test 02/26/25 08:21 Albumin 3.4 g/dL (3.2-4.8) Calcium Level 8.8 mg/dL (8.7-10.4) Magnesium Level 1.9 mg/dL (1.6-2.6) Total Protein 6.4 g/dL (5.7-8.2) LFT Test 02/26/25 08:21 Alanine Aminotransferase (ALT) 23 U/L (7-40) Alkaline Phosphatase 60 U/L (46-116) Aspartate Amino Transferase (AST) 15 U/L (13-40) Total Bilirubin 0.5 mg/dL (0.2-1.0) Urinalysis Test 02/22/25 15:30 Urine Color Light-yellow (Yellow) Urine Clarity Turbid (Clear) H Urine pH 7.0 (5.0-9.0) Urine Specific [place] 1.007 (1.001-1.035) Urine Protein Negative (Negative) Urine Ketones Negative (Negative) Urine Blood Negative /uL (Negative) Urine Nitrite Negative (Negative) Urine Bilirubin Negative (Negative) Urine Urobilinogen Normal mg/dL (Negative) Urine Leukocyte Esterase 3+ /uL (Negative) Urine RBC 2 /hpf (0 - 3) Urine WBC Clumps Present /hpf (None Seen) Urine Microscopic WBC 204 /HPF (0-3) H Urine Squamous Epithelial Cells Few /hpf (<5) Urine Bacteria None seen /hpf (None Seen) Urine Glucose Trace mg/dL (Normal) Microbiology Microbiology Date/Time Source Procedure Growth Status 02/22/25 15:30 Urine - [place] Urine Culture - Preliminary Presumptive Cata albicans Resulted 02/21/25 05:45 Nose MRSA Screen - Final Complete 02/19/25 17:05 Blood Blood Culture - Final NO GROWTH AFTER 5 DAYS OF INCUBATION. Complete Assessment/Plan Assessment/Plan 74-year-old male with a known history of diabetes mellitus type 2, hypertension, dyslipidemia, BPH, chronic congestive heart failure with systolic dysfunction with EF of 40%, status post pacemaker presented to the hospital with generalized weakness found to have 1. Sepsis currently to urinary tract infection 2. Fungal urinary tract infection 3. Hyperglycemia in the setting of diabetes mellitus type 2 4. Hypertension 5. BPH 6. Severe physical deconditioning, with a max assist - started on micafungin because of QT prolongation physical therapy evaluation and treatment -both son and daughter as well as spouse was updated at bedside all the questions were answered. Plan discussed with: Spouse, Daughter, Son My Orders Orders - GALLITO MYLES MD Procedure Category Date Status Time Micafungin Sodium PHA 02/26/25 In Process (Mycamine) 10:00 Pt Request For Service PT 02/26/25 Logged 15:46 Chlorthalidone PHA 02/27/25 In Process (Chlorthalidone) 10:00 Date of Service: Feb 26, 2025 Billing Provider: GALLITO MYLES MD Common Visit Codes: [id number] INP/OBS CARE(HIGH) GALLITO MYLES MD Feb 26, 2025 16:14
[2025-02-27] VITALS (8 sets, daily range): BP systolic 106–147; BP diastolic 62–75; PULSE 72–91; RESP 13–18; TEMP 97.5–98.7; O2SAT 94–98
[2025-02-27] MEDS: ONDANSETRON HCL 4 MG/2 ML VIAL IV PRN (09:04)
[2025-02-27] MEDS: CHLORTHALIDONE 25 MG TAB PO SCH (09:04)
--- NOTE | 2025-02-27 16:05 | DVHPN2 ---
Subjective Patient is currently on antifungal medication. Patient's family has requested SNF placement. Patient denies any complaints beside physical deconditioning. Changes from previous H/P or p: No Changes Objective Vitals Vital Signs Date Time Temp Pulse Resp B/P (MAP) Pulse Ox O2 Delivery O2 Flow Rate FiO2 02/27/25 13:05 97.7 86 13 120/66 (84) 96 97.7 02/27/25 08:00 Room Air* 0 21 Intake/Output Intake and Output 02/27/25 07:00 Intake Total 840 ml Output Total 1000 ml Balance -160 ml Intake Oral 740 ml IV Total 100 ml Output Urine Total 1000 ml # Voids 4 # Bowel Movements 3 Medications Current Medications Medications Dose Ordered Sig/Janee Route Start Time Stop Time Status Last Admin Dose Admin Cefepime HCl 50 ml @ 12.5 mls/hr Q8HR IV 02/19/25 22:00 UNV Ondansetron HCl 4 mg Q4HP PRN IV 02/19/25 20:15 02/27/25 09:04 4 MG Acetaminophen/ Hydrocodone Bitart 1 tab Q4HP PRN PO 02/19/25 21:15 02/23/25 01:31 1 TAB Acetaminophen 650 mg Q6HP PRN PO 02/19/25 21:15 02/26/25 21:30 650 MG Digoxin 0.125 mg DAILY PO 02/20/25 10:00 02/27/25 09:05 0.125 MG Diagnostic Test (Pha) 1 strip ACHS 02/20/25 17:00 02/27/25 11:58 1 STRIP Insulin Human Regular ACHS SC 02/20/25 17:00 02/27/25 11:58 4 UNITS Dextrose 50 ml UD PRN IV 02/20/25 14:15 Tamsulosin HCl 0.4 mg QPM PO 02/20/25 18:00 02/26/25 17:51 0.4 MG Phenazopyridine HCl 100 mg BID PO 02/22/25 22:00 02/27/25 09:04 100 MG Sucralfate 1 gm BID PO 02/22/25 22:00 02/27/25 09:03 1 GM Finasteride 5 mg DAILY PO 02/24/25 10:00 02/27/25 09:03 5 MG Enteral Nutritional Formula 240 ml TIDWM PO 02/24/25 12:00 02/27/25 11:58 240 ML Micafungin Sodium 100 mg/Sodium Chloride 100 ml @ 100 mls/hr DAILY IV 02/26/25 10:00 02/27/25 09:25 100 MLS/HR Chlorthalidone 25 mg DAILY PO 02/27/25 10:00 02/27/25 09:04 25 MG Laboratory Results Laboratory Tests 02/26/25 08:21 Urinalysis Test 02/22/25 15:30 Urine Color Light-yellow (Yellow) Urine Clarity Turbid (Clear) H Urine pH 7.0 (5.0-9.0) Urine Specific [place] 1.007 (1.001-1.035) Urine Protein Negative (Negative) Urine Ketones Negative (Negative) Urine Blood Negative /uL (Negative) Urine Nitrite Negative (Negative) Urine Bilirubin Negative (Negative) Urine Urobilinogen Normal mg/dL (Negative) Urine Leukocyte Esterase 3+ /uL (Negative) Urine RBC 2 /hpf (0 - 3) Urine WBC Clumps Present /hpf (None Seen) Urine Microscopic WBC 204 /HPF (0-3) H Urine Squamous Epithelial Cells Few /hpf (<5) Urine Bacteria None seen /hpf (None Seen) Urine Glucose Trace mg/dL (Normal) Microbiology Microbiology Date/Time Source Procedure Growth Status 02/22/25 15:30 Urine - [place] Urine Culture - Final Presumptive Cata albicans Complete 02/21/25 05:45 Nose MRSA Screen - Final Complete 02/19/25 17:05 Blood Blood Culture - Final NO GROWTH AFTER 5 DAYS OF INCUBATION. Complete Assessment/Plan Assessment/Plan 74-year-old male with a known history of diabetes mellitus type 2, hypertension, dyslipidemia, BPH, chronic congestive heart failure with systolic dysfunction with EF of 40%, status post pacemaker presented to the hospital with fever and generalized weakness found to have 1. Sepsis 2/2 urinary tract infection 2. Fungal urinary tract infection, currently on micafungin day 3/, can not give fluconazole because of prolonged QT 3. Hyperglycemia in the setting of diabetes mellitus type 2, currently controlled 4. Hypertension, controlled 5. BPH/urethral stricture, outpatient cystoscopy as per Urology, no need for [place] catheter as patient is urinating fine 6. Severe physical deconditioning - started on micafungin IV , no fluconazole because of QTC prolongation physical therapy evaluation and treatment -daughter was updated at bedside, SNF placement we will be arranged for IV antifungal has been as physical therapy. -outpatient follow up with Urology for cystoscopy for questionable urethral stricture. Plan discussed with: Daughter My Orders Orders - GALLITO MYLES MD Procedure Category Date Status Time Insert Midline ORDERS 02/27/25 Transmitted 14:46 * [employer] CONS 02/27/25 Transmitted Consult Date of Service: Feb 27, 2025 Billing Provider: GALLITO MYLES MD Common Visit Codes: [id number] INP/OBS CARE(HIGH) GALLITO MYLES MD Feb 27, 2025 16:05
--- NOTE | 2025-02-27 16:31 | DVHINCON2 ---
Date of service: Feb 27, 2025 Referring Physician hospitalist Reason for Consultation urethral stricture History of Present Illness History Source: Patient, RN Notes, MD Notes Exam Limitations: No limitations HPI 74 yo male with fever. Patient reports recently completing an antibiotic regimen for a urinary tract infection a week ago. Today he developed fever. Denies dysuria or hematuria. No abdominal pain, nausea or vomiting. No shortness a breath. No other acute complaints. foely was attempted unsuccessfully. pt was voiding without issue. no hydronephrosis. Past Medical History Hypertension, diabetes mellitus Past Surgical History Denies Family History Noncontributory Smoke: No ALCOHOL: none Drugs: None Home Meds Active Scripts Ciprofloxacin Hcl (Ciprofloxacin Hcl) 500 Mg Tab, 1 TAB PO BID for 7 Days, #14 TAB Prov:ANDREW LOWE MUSIC THERAPY SPECIALIST 02/07/25 Sulfamethoxazole W/Trimethopri (Bactrim Ds Tablet) 1 Tab Tb, 1 TAB PO BID for 10 Days, #20 TAB Prov:PRAVIN VILLATORO PAC 07/18/22 Reported Medications Chlorthalidone (Chlorthalidone) 25 Mg Tab, 1 TAB PO DAILY 02/05/25 Ferrous Sulfate (Ferosul) 325 Mg Tab, 1 TAB PO DAILY 02/05/25 Sucralfate (Sucralfate) 1 Gm Tab, 1 TAB PO BID 02/05/25 Lisinopril (Lisinopril) 2.5 Mg Tab, 1 TAB PO DAILY 02/05/25 Digoxin (Digoxin) 125 Mcg Tab, 1 TAB PO DAILY 02/05/25 Review of Systems Constitutional: Fever H&P Exam Vital Signs Vital Signs Date Time Temp Pulse Resp B/P (MAP) Pulse Ox O2 Delivery O2 Flow Rate FiO2 02/27/25 13:05 97.7 86 13 120/66 (84) 96 97.7 02/27/25 08:00 Room Air* 0 21 Labs/Xrays [place] [id number] Ph: [phone] DIAGNOSTIC IMAGING Diagnostic Imaging Report : [id number] Signed PATIENT: TILA WALLERCCT: [id number] UNIT: [id number] : 1950 LOC: OVERFLOW ROOM / BED: [address] [place] [address] / AGE / SEX: 74 / M ADM STATUS: ADM IN SERVICE 1401 ORDERING PHYSICIAN: REGULO KENNY MD PROCEDURE(s): KIDUS - KIDNEY REASON: uti ORDER NUMBER(s): [id number], ACCESSION NUMBER(s): [id number] US KIDNEY HISTORY: uti COMPARISON: None TECHNIQUE: Transverse and longitudinal grayscale and color doppler images were obtained of the kidneys and bladder. FINDINGS: Right kidney: Size: 9.7 cm Cortical thickness: Normal Echogenicity: Normal Stones: None Masses: None Hydronephrosis: None Ureters: Not well visualized. Other: None Left kidney: Size: 8.8 cm Cortical thickness: Normal Echogenicity: Normal Stones: None Masses: None Hydronephrosis: None Ureters: Not well visualized. Other: None Bladder: Normal Other: None. IMPRESSION: Unremarkable renal ultrasound. ATED BY: CHALO CLEMENTE MD DICTATED DATE/TIME: 02/20/251438 SIGNED BY: CHALO CLEMENTE MD SIGNED DATE/TIME: 02/20/251438 CC: Labs Test 02/27/25 11:52 02/26/25 08:21 02/24/25 16:42 02/22/25 15:30 Range/Units POC Glucose 218 H 70-106 mg/dl White Blood Count 7.9 # 4.4-10.8 10^3/uL Red Blood Count 3.84 L 4.5-5.90 10^6/uL Hemoglobin 11.1 L 13.5-17.5 g/dL Hematocrit 32.9 L 41.0-53.0 % Mean Corpuscular Volume 85.6 80.0-100.0 fL Mean Corpuscular Hemoglobin 28.9 28.0-32.0 pg Mean Corpuscular Hemoglobin Concent 33.8 32.0-36.0 g/dL Red Cell Distribution Width 16.8 H 11.8-14.3 % Platelet Count 324 140-450 10^3/uL Mean Platelet Volume 6.4 L 6.9-10.8 fL Neutrophils (%) (Auto) 78.0 37.0-80.0 % Lymphocytes (%) (Auto) 10.0 10.0-50.0 % Monocytes (%) (Auto) 6.8 0.0-12.0 % Eosinophils (%) (Auto) 4.7 0.0-7.0 % Basophils (%) (Auto) 0.5 0.0-2.0 % Neutrophils # (Auto) 6.2 1.6-8.6 10 ^3/uL Lymphocytes # (Auto) 0.8 0.4-5.4 10 ^3/uL Monocytes # (Auto) 0.5 0-1.3 10 ^3/uL Eosinophils # (Auto) 0.4 0-0.8 10 ^3/uL Basophils # (Auto) 0 0-0.2 10 ^3/uL Nucleated Red Blood Cells 0.1 % Sodium Level 139 # 136-145 mmol/L Potassium Level 3.5 3.5-5.1 mmol/L Chloride Level 105 98-107 mmol/L Carbon Dioxide Level 26 20-31 mmol/L Anion Gap 8 5-15 Blood Urea Nitrogen 11 9-23 mg/dL Creatinine 0.78 0.700-1.30 mg/dL Glomerular Filtration Rate Calc 92 >90 mL/min BUN/Creatinine Ratio 14.1 10.0-20.0 Serum Glucose 211 H 74-106 mg/dL Calcium Level 8.8 8.7-10.4 mg/dL Magnesium Level 1.9 1.6-2.6 mg/dL Total Bilirubin 0.5 0.2-1.0 mg/dL Aspartate Amino Transferase (AST) 15 13-40 U/L Alanine Aminotransferase (ALT) 23 7-40 U/L Alkaline Phosphatase 60 46-116 U/L Total Protein 6.4 5.7-8.2 g/dL Albumin 3.4 3.2-4.8 g/dL Digoxin Level 0.59 L 0.8-2 ng/mL Urine Color Light-yellow Yellow Urine Clarity Turbid H Clear Urine pH 7.0 5.0-9.0 Urine Specific [place] 1.007 1.001-1.035 Urine Protein Negative Negative Urine Ketones Negative Negative Urine Blood Negative Negative /uL Urine Nitrite Negative Negative Urine Bilirubin Negative Negative Urine Urobilinogen Normal Negative mg/dL Urine Leukocyte Esterase 3+ Negative /uL Urine RBC 2 0 - 3 /hpf Urine WBC Clumps Present None Seen /hpf Urine Microscopic WBC 204 H 0-3 /HPF Urine Squamous Epithelial Cells Few <5 /hpf Urine Bacteria None seen None Seen /hpf Urine Glucose Trace Normal mg/dL Test 10/19/25 19:15 02/19/25 17:05 Range/Units Lactic Acid Level 4.1 *H 0.4-2.0 mmol/L Prothrombin Time 10.7 9.3-11.8 sec Prothrombin Time INR 1.01 0.9-1.15 Activated Partial Thromboplast Time 22.1 L 24.5-34.5 SEC Microbiology Date/Time Source Procedure Growth Status 02/22/25 15:30 Urine - [place] Urine Culture - Final Presumptive Cata albicans Complete 02/21/25 05:45 Nose MRSA Screen - Final Complete 02/19/25 17:05 Blood Blood Culture - Final NO GROWTH AFTER 5 DAYS OF INCUBATION. Complete Assessment/Plan Problem List: (1) UTI (urinary tract infection) Plan outpt cystoscopy TBA hydrate Plan discussed with: MARIA DE JESUS Worthington NP Feb 27, 2025 16:31
[2025-02-28] VITALS (7 sets, daily range): BP systolic 104–129; BP diastolic 57–75; PULSE 86–104; RESP 16–18; TEMP 97.7–99.7; O2SAT 92–97
[2025-02-28] MEDS ORDERED: DEXTROSE (50%) 50ML SYRG IV PRN (12:00)
--- NOTE | 2025-02-28 12:28 | DVHDS2 ---
Discharge Summary Date of Admission Feb 19, 2025 at 20:54 Date of Discharge: Feb 28, 2025 Labs/Diagnostic Data: Laboratory Results Test 02/28/25 11:31 02/26/25 08:21 02/24/25 16:42 02/22/25 15:30 POC Glucose 229 mg/dl (70-106) White Blood Count 7.9 10^3/uL (4.4-10.8) Red Blood Count 3.84 10^6/uL (4.5-5.90) Hemoglobin 11.1 g/dL (13.5-17.5) Hematocrit 32.9 % (41.0-53.0) Mean Corpuscular Volume 85.6 fL (80.0-100.0) Mean Corpuscular Hemoglobin 28.9 pg (28.0-32.0) Mean Corpuscular Hemoglobin Concent 33.8 g/dL (32.0-36.0) Red Cell Distribution Width 16.8 % (11.8-14.3) Platelet Count 324 10^3/uL (140-450) Mean Platelet Volume 6.4 fL (6.9-10.8) Neutrophils (%) (Auto) 78.0 % (37.0-80.0) Lymphocytes (%) (Auto) 10.0 % (10.0-50.0) Monocytes (%) (Auto) 6.8 % (0.0-12.0) Eosinophils (%) (Auto) 4.7 % (0.0-7.0) Basophils (%) (Auto) 0.5 % (0.0-2.0) Neutrophils # (Auto) 6.2 10 ^3/uL (1.6-8.6) Lymphocytes # (Auto) 0.8 10 ^3/uL (0.4-5.4) Monocytes # (Auto) 0.5 10 ^3/uL (0-1.3) Eosinophils # (Auto) 0.4 10 ^3/uL (0-0.8) Basophils # (Auto) 0 10 ^3/uL (0-0.2) Nucleated Red Blood Cells 0.1 % Sodium Level 139 mmol/L (136-145) Potassium Level 3.5 mmol/L (3.5-5.1) Chloride Level 105 mmol/L (98-107) Carbon Dioxide Level 26 mmol/L (20-31) Anion Gap 8 (5-15) Blood Urea Nitrogen 11 mg/dL (9-23) Creatinine 0.78 mg/dL (0.700-1.30) Glomerular Filtration Rate Calc 92 mL/min (>90) BUN/Creatinine Ratio 14.1 (10.0-20.0) Serum Glucose 211 mg/dL (74-106) Calcium Level 8.8 mg/dL (8.7-10.4) Magnesium Level 1.9 mg/dL (1.6-2.6) Total Bilirubin 0.5 mg/dL (0.2-1.0) Aspartate Amino Transferase (AST) 15 U/L (13-40) Alanine Aminotransferase (ALT) 23 U/L (7-40) Alkaline Phosphatase 60 U/L (46-116) Total Protein 6.4 g/dL (5.7-8.2) Albumin 3.4 g/dL (3.2-4.8) Digoxin Level 0.59 ng/mL (0.8-2) Urine Color Light-yellow (Yellow) Urine Clarity Turbid (Clear) Urine pH 7.0 (5.0-9.0) Urine Specific [place] 1.007 (1.001-1.035) Urine Protein Negative (Negative) Urine Ketones Negative (Negative) Urine Blood Negative /uL (Negative) Urine Nitrite Negative (Negative) Urine Bilirubin Negative (Negative) Urine Urobilinogen Normal mg/dL (Negative) Urine Leukocyte Esterase 3+ /uL (Negative) Urine RBC 2 /hpf (0 - 3) Urine WBC Clumps Present /hpf (None Seen) Urine Microscopic WBC 204 /HPF (0-3) Urine Squamous Epithelial Cells Few /hpf (<5) Urine Bacteria None seen /hpf (None Seen) Urine Glucose Trace mg/dL (Normal) Test 02/19/25 19:15 02/19/25 17:05 Lactic Acid Level 4.1 mmol/L (0.4-2.0) Prothrombin Time 10.7 sec (9.3-11.8) Prothrombin Time INR 1.01 (0.9-1.15) Activated Partial Thromboplast Time 22.1 SEC (24.5-34.5) Other Laboratory Tests 02/26/25 08:21 Brief Hx & Hospital Course: see dictated note Condition at Discharge: Fair Final Diagnosis/Problems List uti Discharge Disposition: [facility] Discharge Instruct/Medications Diet: Consistent carbohydrate, Cardiac 2g Na,low cholest Activity: No Restrictions, As Tolerated Follow Up/Referral: fu with pcp/urology Medications: per mar Scheduled Chlorthalidone (Chlorthalidone), 1 TAB PO DAILY, (Reported) Ciprofloxacin Hcl (Ciprofloxacin Hcl), 1 TAB PO BID Digoxin (Digoxin), 1 TAB PO DAILY, (Reported) Ferrous Sulfate (Ferosul), 1 TAB PO DAILY, (Reported) Lisinopril (Lisinopril), 1 TAB PO DAILY, (Reported) Sucralfate (Sucralfate), 1 TAB PO BID, (Reported) Sulfamethoxazole W/Trimethopri (Bactrim Ds Tablet), 1 TAB PO BID Discharge Statement: "Patient was advised to return to the ER or call 911 if any headaches, dizziness, shortness of breath, chest pain, abdominal pain, bleeding, fevers, or worsening of medical condition. Patient was counseled about treatment plan, medications, possible side effects, patientverbalized understanding. All questions were answered to the best of my ability. This discharge took greater then 30 minutes in planning, reviewing documentation, counseling the patient, and discussing with other team members." ASSESSMENT ASSESSMENT Assessment uti Date of Service: Feb 28, 2025 Billing Provider: REGULO KENNY MD Common Visit Codes: 67516-JFV/OBS DISCH DAY >30min REGULO KENNY MD Feb 28, 2025 12:28
--- NOTE | 2025-02-28 13:01 | DVHDS ---
DATE OF DISCHARGE: 02/28/2025 Date of transfer to SNF 02/28/2025. HISTORY OF PRESENT ILLNESS: The patient is a 74-year-old gentleman who was admitted with a history of fever and dysuria. He has a history of hypertension, diabetes, arthritis, and a recent UTI. HOSPITAL COURSE: The patient had low-grade fevers. The patient's urine culture eventually grew Cata albicans. Blood cultures were negative. The patient has been now afebrile. He was seen in Urology consult by Dr. Caputo. A kidney ultrasound was unremarkable. The patient had a chest x-ray that was unremarkable. The patient will now be discharged to SNF with medications as per med reconciliation. The patient also had an echocardiogram done that showed ejection fraction of 40%. FINAL DIAGNOSES: Therefore, * UTI with sepsis, likely secondary to cata. * Diabetes mellitus. * Hypertension. * Likely BPH. * Chronic diastolic heart failure. * History of pacemaker. Time spent in discharge planning and review of plan with the patient, family and paperwork was 41 minutes. MD ROMÁN Bertrand/ISIS TID: [id number] RECEIPT: [id number]
[2025-02-28] MEDS: ACCU-CHEK COMFORT CURVE STRIP VI SCH (17:00)
[2025-02-28] MEDS: InsuLIN REG 1unit/0.01ml Soln (100units/ml) SC SCH (18:05)
[2025-02-28] MEDS ORDERED: InsuLIN REG 1unit/0.01ml Soln (100units/ml) SC SCH (22:00)
== END 2025-02-28 20:42 | DRG 872 ==
LOC: EDBD 15:50 → ER 15:50 → EDUNIT# 15:50 → UNDOADMIN 19:54 → OVERFLOW 19:54 → WEST WING 02-20 22:00
PROVIDERS: ADMIT Internal Medicine; ATTEND Internal Medicine
PROC: 05HB33Z Insertion of Infusion Device into Right Basilic Vein, Percutaneous Approach (ICD-10-PCS; principal; 2025-02-27)
PROC: B54MZZA Ultrasonography of Right Upper Extremity Veins, Guidance (ICD-10-PCS; 2025-02-27)
DX: B37.7 Candidal sepsis (principal); N39.0 Urinary tract infection, site not specified; B49 Unspecified mycosis; K92.2 Gastrointestinal hemorrhage, unspecified; I50.32 Chronic diastolic (congestive) heart failure; E87.6 Hypokalemia; N40.0 Benign prostatic hyperplasia without lower urinary tract symptoms; E11.65 Type 2 diabetes mellitus with hyperglycemia; I11.0 Hypertensive heart disease with heart failure; N35.919 Unspecified urethral stricture, male, unspecified site; E78.5 Hyperlipidemia, unspecified; Z87.11 Personal history of peptic ulcer disease; Z95.0 Presence of cardiac pacemaker
CPT/HCPCS: 36415; 71045; 76775; 80048; 80053; 80162; 81001; 82962; 83605; 83735; 84132; 85025; 85610; 85730; 86850; 86900; 86901; 87040; 87081; 87086; 87088; 93005; 93306; 96365; 96366; 96375; 97110; 97116; 97163; 97530; G0378; J1335; J1815; J2248; J2405; J2470; J3480